=== PATIENT | female | born 1965 | race Caucasian/White ===

== ENCOUNTER → 2016-07-29 | Outpatient (CLI) | payer BC ==
[~2016-07-29] MED LIST: BUPROPION; CELE40TA; CIPR500T89 PO; CLIN300C; DITR5TAB PO; EXFO5TAB2 PO; IBUP200C PO; IBUP800T; LASI20TA PO; LORTTAB2 PO; METOPROLOL; MULTTAB4 PO; NORV5TAB; PAXI40TA2 PO; PERCOCET PO; PHEN-223 PO; VICO5TAB
--- NOTE | 2016-07-29 18:04 | REP ---
Supine abdomen two views: A comparison is 11/23/2015. The bowel gas pattern is normal. There are calcifications projected over the left kidney, unchanged. No calcifications are note along the courses of the right and left ureters. The previous calcification is suspected in the distal right ureter is no longer present. There is a 2.1 cm round density medially in the right iliac wing, unchanged from a prior study of 12/22/2011 and unchanged from the CT scans of 09/14/2015, 05/07/2006, likely a large bone island although metastasis is not entirely excluded. By CT there are bilateral renal calculi. The right kidney is obscured by bowel. on the current study. Signed by Steve Valles MD 07/29/2016 05:57 P
== END ==
LOC: M LAB 16:58
PROVIDERS: ATTEND Physician Assistant
DX: N20.0 Calculus of kidney (principal); M54.5 Low back pain

== ENCOUNTER → 2017-03-24 | Outpatient (CLI) | payer BC ==
[~2017-03-24] MED LIST changes: +CIPR-249 PO
--- NOTE | 2017-03-24 16:26 | REP ---
CT abdomen pelvis without IV and oral contrast: Comparison is 09/14/2015. There are multiple nonobstructive renal calculi bilaterally L of the approximate three 5 mm range. There is left hydronephrosis and hydroureter. There is a 7 mm calculus in the distal left ureter at its junction with the urinary bladder. There are numerous phleboliths in the pelvis. There are no right ureteral calculi. There is no perinephric stranding on the right on the left. There is a small volume of pleural effusion in the anterior sulcus of the right hemithorax. The visualized lung [place] otherwise unremarkable. The unenhanced hepatic parenchyma, gallbladder, pancreas and spleen are unremarkable. The adrenals are unremarkable. The abdominal aorta, bowel and mesentery are unremarkable. Pelvis: There are surgical clips adjacent to the cecum. The the patient has had appendectomy. The uterus and adnexa are unremarkable. The bladder is unremarkable. There is no adenopathy or ascites. The pelvic bowel loops are unremarkable. Impression: 7 mm obstructing calculus in the distal left ureter at its junction with the urinary bladder. Multiple bilateral nonobstructive renal calculi. Appendectomy. Small pleural effusion in the anterior sulcus of the right lung. Signed by Steve Valles MD 03/24/2017 04:17 P
== END ==
LOC: M RAD 14:40
PROVIDERS: ATTEND Urology
DX: N20.0 Calculus of kidney (principal)

== ENCOUNTER → 2017-11-09 | Outpatient (CLI) | payer BC | LOC: M LRY 13:58 | DX: N20.0 Calculus of kidney (principal); N28.1 Cyst of kidney, acquired; N13.30 Unspecified hydronephrosis | CPT/HCPCS: 76775 ==

== ENCOUNTER → 2017-11-11 | Outpatient (CLI) | payer BC | LOC: M RAD 11:01 | DX: N20.0 Calculus of kidney (principal) | CPT/HCPCS: 74176 ==

== ENCOUNTER 2018-03-14 13:45 | Emergency (ER) | payer OTHER, BC ==
[2018-03-14 14:30] LABS: BASO % 0.6 % (0.0-1.0); EOS # 0.3 10^3/uL (0.0-0.50); EOS % 4.1 % (0.0-3.0); HEMATOCRIT 39.7 % (36.0-47.0); HEMOGLOBIN 13.3 g/dl (12.0-15.5); IMMATURE GRANULOCYTE % 0.4 % (0-3.0); LYMPH # 2.1 10^3/uL (1.5-4.5); LYMPH % 29.5 % (24.0-44.0); MEAN CORPUSCULAR HEMOGLOBIN 31.2 pg (27.0-33.0); MEAN CORPUSCULAR HGB CONC 33.5 g/dl (32.0-36.5); MEAN CORPUSCULAR VOLUME 93.2 fl (80.0-96.0); MONO # 0.5 10^3/uL (0.0-0.8); MONO % 6.7 % (0.0-5.0); NEUTROPHILS # 4.3 10^3/uL (1.8-7.7); NEUTROPHILS % 58.7 % (36.0-66.0); PLATELET COUNT, AUTOMATED 275 10^3/uL (150-450); RED BLOOD COUNT 4.26 10^6/uL (4.00-5.40); RED CELL DISTRIBUTION WIDTH 12.7 % (11.5-14.5); WHITE BLOOD COUNT 7.3 10^3/uL (4.0-10.0)
[2018-03-14 14:34] LABS: KETONE, URINE AUTO RFX NEGATIVE (NEGATIVE); LEUKOCYTE ESTERASE UR AUTO RFX NEGATIVE (NEGATIVE); MUCUS, URINE RFX SMALL (NEGATIVE); NITRITE, URINE AUTO RFX NEGATIVE (NEGATIVE); RBC, URINE AUTO RFX 64 /HPF (0-3); SPECIFIC GRAVITY UR AUTO RFX 1.016 (1.002-1.035); SQUAM EPITHELIAL CELL UR AURFX 4 /HPF (0-6); WBC, URINE AUTO RFX 2 /HPF (0-3)
[2018-03-14] MEDS: KETOROLAC 30 MG/ML VIAL (J1885) IV (14:41)
[2018-03-14] MEDS: NS 1,000 ML IV (14:41)
[2018-03-14 14:43] LABS: ALBUMIN 3.3 GM/DL (3.2-5.2); ALKALINE PHOSPHATASE 62 U/L (45-117); ALT/SGPT 39 U/L (12-78); ANION GAP 9 MEQ/L (8-16); AST/SGOT 20 U/L (7-37); BILIRUBIN,DIRECT < 0.1 MG/DL (0.0-0.2); BILIRUBIN,TOTAL 0.3 MG/DL (0.2-1.0); BLOOD UREA NITROGEN 19 MG/DL (7-18); CALCIUM LEVEL 9.2 MG/DL (8.5-10.1); CARBON DIOXIDE LEVEL 25 MEQ/L (21-32); CHLORIDE LEVEL 107 MEQ/L (98-107); CREATININE FOR GFR 1.04 MG/DL (0.55-1.30); GLOMERULAR FILTRATION RATE 59.5 (>51); GLUCOSE, FASTING 105 MG/DL (70-100); LIPASE 240 U/L (73-393); POTASSIUM SERUM 3.5 MEQ/L (3.5-5.1); SODIUM LEVEL 141 MEQ/L (136-145); TOTAL PROTEIN 6.6 GM/DL (6.4-8.2)
[2018-03-14] MEDS: HYDROMORPHONE HCL 0.5 MG/ 0.5 ML SYRINGE (J1170 PER 1) IV (15:17)
[2018-03-14] MEDS: CIPROFLOXACIN 500 MG TAB PO (16:03)
[2018-03-14] MEDS: TAMSULOSIN 0.4 MG CAP PO (16:04)
== END 2018-03-14 16:25 | disposition home or self-care (01) ==
LOC: M ED 13:45
DX: N20.1 Calculus of ureter (principal); E86.0 Dehydration; R10.32 Left lower quadrant pain; I10 Essential (primary) hypertension; Z87.442 Personal history of urinary calculi; G43.909 Migraine, unspecified, not intractable, without status migrainosus; M16.0 Bilateral primary osteoarthritis of hip; Z79.899 Other long term (current) drug therapy; Z91.018 Allergy to other foods; J30.89 Other allergic rhinitis
CPT/HCPCS: J1885

== ENCOUNTER 2018-03-15 10:21 | Day surgery (SDC) | payer OTHER ==
[2018-03-15] MEDS ORDERED: ceFAZolin 2 GM/D5W 50 ML IV BAG (J0690 PER 500MG) As Ordered (10:49)
[2018-03-15] MEDS ORDERED: MORPHINE 4 MG/ML 1ML VIAL/SYRINGE (J2270) As Ordered (11:20)
[2018-03-15] MEDS: LR 1,000 ML IV (11:20)
[2018-03-15] MEDS ORDERED: ONDANSETRON 4MG/2ML VIAL (J2405) As Ordered ×2 (11:27→14:15)
[2018-03-15] MEDS: MORPHINE 4 MG/ML 1ML VIAL/SYRINGE (J2270) IV (11:29)
[2018-03-15] MEDS ORDERED: ONDANSETRON 4MG/2ML VIAL (J2405) IV ×2 (11:30→15:30)
[2018-03-15 11:35] LABS: INR 0.97; PROTHROMBIN TIME 12.9 SECONDS (12.1-14.4)
[2018-03-15] MEDS: CONRAY-60 60% 50ML VIAL (Q9961) As Ordered (14:04)
[2018-03-15] MEDS ORDERED: ePHEDrine SULFATE 25 MG/5 ML(5MG/ML) SYRINGE As Ordered (14:15)
[2018-03-15] MEDS ORDERED: PROPOFOL 200 MG/20 ML VIAL As Ordered (14:15)
[2018-03-15] MEDS ORDERED: fentaNYL 250 MCG/5 ML INJECTION (J3010) As Ordered (14:15)
[2018-03-15] MEDS ORDERED: MIDAZOLAM INJ 2 MG/2 ML VIAL (J2250) As Ordered (14:15)
[2018-03-15] MEDS ORDERED: LIDOCAINE 2% INJ 100 MG/5 ML SDV (FOR ANES.) As Ordered (14:15)
[2018-03-15] MEDS ORDERED: dexameTHASONE 4 MG/ML 1ML VIAL (J1100) As Ordered (14:15)
[2018-03-15] MEDS ORDERED: PHENYLephrine HCL 500 MCG/5 ML (100MCG/ML) SYRINGE (J2370) As Ordered (14:15)
[2018-03-15] MEDS ORDERED: KETOROLAC 60 MG/2 ML VIAL (J1885) As Ordered (14:26)
[2018-03-15] MEDS ORDERED: PERCOCET 5MG/325MG TAB As Ordered (15:00)
[2018-03-15] MEDS: PERCOCET 5MG/325MG TAB PO (15:05)
[2018-03-15] MEDS ORDERED: LR 1,000 ML IV (15:30)
[2018-03-15] MEDS ORDERED: fentaNYL 100 MCG/2 ML INJECTION (J3010) IV (15:30)
[2018-03-21 14:17] LABS: CA Oxalate Dihy 15 % (.); COMMENT Note: (.); Ca Ox Monohydrate 40 % (.)
== END 2018-03-15 17:10 | disposition home or self-care (01) ==
LOC: M SDC 17:10
DX: N20.0 Calculus of kidney (principal); I10 Essential (primary) hypertension; F32.9 Major depressive disorder, single episode, unspecified; E66.9 Obesity, unspecified; Z68.42 Body mass index [BMI] 45.0-49.9, adult
CPT/HCPCS: 52356

== ENCOUNTER → 2018-04-04 | Outpatient (REF) | payer BC ==
[2018-04-04 20:18] LABS: APPEARANCE, URINE CLOUDY (CLEAR); BACTERIA, URINE AUTO 1+ (NEGATIVE); BILIRUBIN, URINE AUTO NEGATIVE (NEGATIVE); BLOOD, URINE BLOOD 3+ (NEGATIVE); COLOR, URINE YELLOW (YELLOW); GLUCOSE, URINE (UA) AUTO NEGATIVE (NEGATIVE); KETONE, URINE AUTO NEGATIVE (NEGATIVE); LEUKOCYTE ESTERASE, URINE AUTO NEGATIVE (NEGATIVE); MUCUS, URINE SMALL (NEGATIVE); NITRITE, URINE AUTO NEGATIVE (NEGATIVE); PROTEIN, URINE AUTO NEGATIVE (NEGATIVE); RBC, URINE AUTO 10 /HPF (0-3); SPECIFIC GRAVITY URINE AUTO 1.019 (1.002-1.035); SQUAMOUS EPITHELIAL CELL UR AU 8 /HPF (0-6); UROBILINOGEN, URINE AUTO 0.2 mg/dL (0.0-2.0); WBC, URINE AUTO 9 /HPF (0-3)
== END ==
LOC: M SFHCLERA 16:42
DX: Z46.6 Encounter for fitting and adjustment of urinary device (principal)

== ENCOUNTER 2021-01-22 09:08 | Emergency (ER) | payer OTHER ==
[~2021-01-22] VITALS: Ht 160 cm; Wt 127.3 kg
[~2021-01-22 09:08] MED LIST changes: +ACET650T61 PO; +CIPR500T3 PO; +FLOM0.4C39 PO; +LOTR10CA2 PO; +PERC5TAB12 PO; +TOPI25TA10; +VITA200016 PO; +ZIAC1TAB PO
[2021-01-22] MEDS ORDERED: BISO5TAB2 (09:16)
[2021-01-22] MEDS ORDERED: GABA-1171 (09:16)
[2021-01-22] MEDS ORDERED: KETOROLAC 30 MG/ML 1ML VIAL IV ONE (11:20)
[2021-01-22 11:35] LABS: BASO % 0.4 % (0.0-1.0); EOS # 0.2 10^3/uL (0.0-0.5); EOS % 2.3 % (0.0-3.0); HEMATOCRIT 43.7 % (36.0-47.0); HEMOGLOBIN 15.1 g/dl (12.0-15.5); LYMPH # 1.3 10^3/uL (1.5-5.0); LYMPH % 13.9 % (24.0-44.0); MEAN CORPUSCULAR HEMOGLOBIN 32.4 pg (27.0-33.0); MEAN CORPUSCULAR HGB CONC 34.6 g/dl (32.0-36.5); MEAN CORPUSCULAR VOLUME 93.8 fl (80.0-96.0); MONO # 0.9 10^3/uL (0.0-0.8); MONO % 9.6 % (2.0-8.0); NEUTROPHILS # 6.8 10^3/uL (1.5-8.5); NEUTROPHILS % 73.3 % (36.0-66.0); PLATELET COUNT, AUTOMATED 273 10^3/uL (150-450); RED BLOOD COUNT 4.66 10^6/uL (4.00-5.40); WHITE BLOOD COUNT 9.3 10^3/uL (4.0-10.0)
[2021-01-22 12:10] LABS: ALBUMIN 3.5 GM/DL (3.2-5.2); BILIRUBIN,DIRECT 0.2 MG/DL (0.0-0.2); BILIRUBIN,TOTAL 0.5 MG/DL (0.2-1.0); CALCIUM LEVEL 8.7 MG/DL (8.5-10.1); CREATININE FOR GFR 1.15 MG/DL (0.55-1.30); GLOMERULAR FILTRATION RATE 52.3 (>51); POTASSIUM SERUM 3.4 MEQ/L (3.5-5.1); TOTAL PROTEIN 6.9 GM/DL (6.4-8.2)
--- NOTE | 2021-01-22 12:38 | REP ---
INDICATION: RLL pain h/o stones COMPARISON: Comparison CT study of the abdomen and pelvis is from March 15, 2018.. TECHNIQUE: Helical scanning is acquired and 3 mm axial images were reformatted. Coronal and sagittal MPR images were generated and reviewed. FINDINGS: Preliminary digital food safety coordinator radiograph is unremarkable. There are granulomatous calcifications in the lung bases. No infiltrate or mass is seen in the lung bases. There is a lobulated cystic lesion in the sub pulmonic region of the right chest just above the right hemidiaphragm unchanged from the March 15, 2018 study. This compatible with a pericardial cyst. It measures 3.6 cm craniocaudal by 6.9 cm in oblique anteroposterior by 11.3 cm in oblique medial to lateral dimension. This is visible on multiple prior studies and is essentially unchanged dating back to 2010. There is moderate diffuse fatty infiltration of the liver again noted. There are areas of fat sparing near the gallbladder. No abnormality is seen in the gallbladder. The pancreas is unremarkable. Normal adrenal glands are observed. No splenic abnormality is seen. There is moderate to marked right-sided hydronephrosis and hydroureter. This is due to the presence of an obstructing calculus in the distal ureter at the pelvic inlet. This measures 7 mm in greatest craniocaudal span. There is a nonobstructing calculus just above this in the dilated distal ureter which measures 3 mm in diameter. There is Gina ureteral edema and some perinephric edema is seen. There are numerous intrarenal calculi bilaterally. These measure up to 5 mm. There is no hydronephrosis on the left. No bladder calculus is seen. No uterine or ovarian mass lesion is seen. Nabothian cyst is seen in the cervix. There are clips in the right lower quadrant post appendectomy. Small and large bowel loops are unremarkable. There is mild diverticulosis of the sigmoid colon. No abdominal wall defect is seen. IMPRESSION: 1. Acute obstructive uropathy with moderate to marked hydronephrosis right kidney due to a 7 mm calculus in the right distal ureter at the pelvic inlet. 2. Multiple intrarenal calculi bilaterally. No left-sided hydronephrosis. 3. Moderate diffuse fatty infiltration of the liver. 4. 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 <Electronically signed by Bowen Ulrich > 01/22/21 [id number]
[2021-01-22] MEDS ORDERED: PERC5TAB12 PO (13:38)
[2021-01-22] MEDS ORDERED: CIPR500T39 PO (13:40)
[2021-01-22 14:15] VITALS: BP 117/58
== END 2021-01-22 14:36 | disposition home or self-care (01) ==
LOC: M ED 09:08
DX: N13.2 Hydronephrosis with renal and ureteral calculous obstruction (principal); K76.0 Fatty (change of) liver, not elsewhere classified; I10 Essential (primary) hypertension; Z91.018 Allergy to other foods
CPT/HCPCS: 74176; 80048; 80076; 81001; 83690; 85025; 96374; 99284; J1885

== ENCOUNTER 2021-02-18 16:48 | Emergency (ER) | payer OTHER ==
[~2021-02-18] VITALS: Ht 160 cm; Wt 129.1 kg
[~2021-02-18 16:48] MED LIST changes: +BISO5TAB2 PO; +CIPR500T39 PO; +GABA-1171 PO
[2021-02-18] MEDS ORDERED: KETOROLAC 60MG 2ML VIAL IM ONE (18:00)
[2021-02-18] MEDS ORDERED: AUGM875T28 PO (18:00)
[2021-02-18 18:44] VITALS: BP 159/85
[2021-02-19] MEDS ORDERED: PRED20TA PO (15:45)
[2021-02-19] MEDS ORDERED: AMOX875T2 PO (21:52)
[2021-02-19] MEDS ORDERED: MAGN500T12 PO (21:52)
[2021-02-19] MEDS ORDERED: SM P99TA PO (21:52)
[2021-02-19] MEDS ORDERED: B-12100010 PO (21:52)
[2021-02-19] MEDS ORDERED: DULO60CA35 PO (21:52)
[2021-02-19] MEDS ORDERED: D31000TA2 PO (21:52)
[2021-02-19] MEDS ORDERED: MULTTAB86 PO (21:52)
[2021-02-19] MEDS ORDERED: BUPR15TASR PO (21:52)
[2021-02-19] MEDS ORDERED: IBUP80TA PO (21:52)
[2021-02-19] MEDS ORDERED: ACET650T15 PO (21:52)
[2021-02-19] MEDS ORDERED: VITA500C24 PO (21:52)
== END 2021-02-18 18:39 | disposition home or self-care (01) ==
LOC: M ED 16:48
DX: J36 Peritonsillar abscess (principal); Z91.018 Allergy to other foods; J30.2 Other seasonal allergic rhinitis; Z79.899 Other long term (current) drug therapy
CPT/HCPCS: 96372; 99283; J1885

== ENCOUNTER 2021-02-19 15:08 | Inpatient (IN) | payer OTHER ==
[~2021-02-19] VITALS: Ht 160 cm; Wt 127.1 kg
[~2021-02-19 15:08] MED LIST changes: +AUGM875T28 PO
[2021-02-19] MEDS ORDERED: PRED20TA PO (15:45)
[2021-02-19] MEDS ORDERED: ONDANSETRON 4MG/2ML VIAL IV ONE (18:25)
[2021-02-19] MEDS ORDERED: MORPHINE 4 MG/ML 1ML VIAL/SYRINGE (J2270) IV ONE ×2 (18:25→20:55)
[2021-02-19] MEDS ORDERED: NS 1,000 ML IV ONE (18:25)
[2021-02-19] MEDS ORDERED: dexameTHASONE 20MG/5ML VIAL (J1100 PER 1MG) IV ONE (18:35)
[2021-02-19 19:13] LABS: BASO % 0.3 % (0.0-1.0); HEMATOCRIT 40.5 % (36.0-47.0); HEMOGLOBIN 13.9 g/dl (12.0-15.5); LYMPH # 1.9 10^3/uL (1.5-5.0); LYMPH % 16.1 % (24.0-44.0); MEAN CORPUSCULAR HEMOGLOBIN 31.9 pg (27.0-33.0); MEAN CORPUSCULAR HGB CONC 34.3 g/dl (32.0-36.5); MEAN CORPUSCULAR VOLUME 92.9 fl (80.0-96.0); MONO # 0.9 10^3/uL (0.0-0.8); MONO % 7.5 % (2.0-8.0); NEUTROPHILS # 8.8 10^3/uL (1.5-8.5); NEUTROPHILS % 75.6 % (36.0-66.0); PLATELET COUNT, AUTOMATED 277 10^3/uL (150-450); RED BLOOD COUNT 4.36 10^6/uL (4.00-5.40); WHITE BLOOD COUNT 11.7 10^3/uL (4.0-10.0)
[2021-02-19] MEDS ORDERED: ISOVUE-370 76% 100ML VIAL As Ordered ONE (19:24)
[2021-02-19 19:45] LABS: ERYTHROCYTE SEDIMENTATION RATE 54 mm/hr (0-30)
--- NOTE | 2021-02-19 20:08 | REPVR ---
PROCEDURE INFORMATION: Exam: CT Neck With Contrast Exam date and time: 02/19/2021 7:39 PM Age: 55 years old Clinical indication: Abscess, pharyngeal and dysphagia / difficulty swallowing; Additional info: Recent abscess, dysphagia, lateral neck pain TECHNIQUE: Imaging protocol: Computed tomography images of the neck with contrast. Radiation optimization: All CT scans at this facility use at least one of these dose optimization techniques: automated exposure control; mA and/or kV adjustment per patient size (includes targeted exams where dose is matched to clinical indication); or iterative reconstruction. Contrast material: ISOVUE 370; Contrast volume: 75 ml; Contrast route: INTRAVENOUS (IV); COMPARISON: No relevant prior studies available. FINDINGS: Nasopharynx: Unremarkable. Oropharynx: 1.4 x 1.7 x 3.6 cm multilocular left peritonsillar abscess associated with marked thickening of the left tonsillar pillar. Hypopharynx: Mild mass effect on the left lateral side of the hypopharynx secondary to the adjacent abscess. Larynx: Unremarkable. Normal epiglottis. Retropharyngeal space: Unremarkable. Submandibular/Parotid glands: Normal. Glands are normal in size. Thyroid: Normal. No enlarged or calcified nodules. Lymph nodes: Prominent left jugulodigastric lymph node measures 1.2 cm. Multiple bilateral cervical chain lymph nodes not significantly enlarged by standard node criteria. Trachea: Visualized trachea is unremarkable. Lungs: Unremarkable as visualized. Bones/joints: Unremarkable. No acute fracture. Vasculature: Mild atherosclerotic changes in the proximal right internal carotid artery. Soft tissues: Unremarkable. No significant soft tissue swelling. IMPRESSION: 1. 1.4 x 1.7 x 3.6 cm multilocular left peritonsillar abscess associated with marked thickening of the left tonsillar pillar. 2. Prominent left jugulodigastric lymph node measures 1.2 cm. Multiple bilateral cervical chain lymph nodes not significantly enlarged by standard node criteria. Electronically signed by: Levon Diana On 02/19/2021 20:08:30 PM
[2021-02-19] MEDS ORDERED: CLINDAMYCIN 600 MG in IV 1 EA IV ONE (21:15)
[2021-02-19] MEDS ORDERED: DULO60CA35 PO (21:52)
[2021-02-19] MEDS ORDERED: AMOX875T2 PO (21:52)
[2021-02-19] MEDS ORDERED: IBUP80TA PO (21:52)
[2021-02-19] MEDS ORDERED: ACET650T15 PO (21:52)
[2021-02-19] MEDS ORDERED: MULTTAB86 PO (21:52)
[2021-02-19] MEDS ORDERED: B-12100010 PO (21:52)
[2021-02-19] MEDS ORDERED: D31000TA2 PO (21:52)
[2021-02-19] MEDS ORDERED: BUPR15TASR PO (21:52)
[2021-02-19] MEDS ORDERED: VITA500C24 PO (21:52)
[2021-02-19] MEDS ORDERED: SM P99TA PO (21:52)
[2021-02-19] MEDS ORDERED: MAGN500T12 PO (21:52)
[2021-02-19] MEDS ORDERED: HOME MED LIST COMPLETE! XX SCH (21:55)
[2021-02-19] MEDS ORDERED: LIDOCAINE W/EPINEPHRINE 1% 20ML VIAL As Ordered ONE (21:56)
[2021-02-19] MEDS ORDERED: ceFAZolin 1GM VIAL (J0690 PER 500MG) As Ordered ONE (21:58)
[2021-02-19 22:01] LABS: RSV AMPLIFICATION NEGATIVE (NEGATIVE)
[2021-02-19] MEDS ORDERED: METHYLENE BLUE 0.5% (5MG/ML) 10 ML AMP (PROVAYBLUE) As Ordered ONE (22:25)
[2021-02-19] MEDS ORDERED: OXYMETAZOLINE 0.05% NASAL SPRAY (AFRIN) As Ordered ONE (22:26)
[2021-02-19] MEDS ORDERED: MAALOX 30 ML SUSP *UDC PO PRN (22:30)
[2021-02-19] MEDS ORDERED: ACETAMINOPHEN TAB 650MG DOSE (2X325MG) PO PRN (22:30)
[2021-02-19] MEDS ORDERED: MOM 30ML SUSPENSION UDC PO PRN (22:30)
[2021-02-19] MEDS ORDERED: fentaNYL 100 MCG/2 ML INJECTION (J3010) As Ordered ONE (22:36)
[2021-02-19] MEDS ORDERED: MIDAZOLAM INJ 2MG/2ML VIAL (J2250 PER 1MG) As Ordered ONE (22:36)
[2021-02-19] MEDS ORDERED: dexameTHASONE 4 MG/ML 1ML VIAL (J1100 PER 1MG) As Ordered ONE ×2 (22:37→22:53)
[2021-02-19] MEDS ORDERED: LIDOCAINE 2% 100MG/5ML SDV (FOR ANES.) As Ordered ONE (22:37)
[2021-02-19] MEDS ORDERED: propofoL 200 MG/20 ML VIAL As Ordered ONE (22:37)
[2021-02-19] MEDS ORDERED: ROCURONIUM BROMIDE 50 MG/5 ML VIAL As Ordered ONE ×2 (22:37→22:55)
[2021-02-19] MEDS ORDERED: ONDANSETRON 4MG/2ML VIAL As Ordered ONE (22:37)
[2021-02-19] MEDS ORDERED: METOCLOPRAMIDE INJ 10MG/2ML VIAL (J2765 PER 1) As Ordered ONE (22:37)
[2021-02-19] MEDS ORDERED: SUCCINYLCHOLINE 100 MG/5 ML SYRINGE (J0330) As Ordered ONE (22:37)
--- NOTE | 2021-02-19 22:40 | HPEPDOC ---
[facility] [address] [facility] Medical History & Physical Date of Admission Feb 19, 2021 Date of Service: Feb 19, 2021 Attending Physician: MICHELLE HUNT MD History and Physical CHIEF COMPLAINT: [55 y/o female c/o continued sore throat x1 week] HISTORY OF PRESENT ILLNESS: [This is a 55 y/o female with a pmh of htn, migraines and recurrent nephrolithiasis who reports to our ED with a 7 day history of sore throat and voice hoarseness. Patient originally presented to urgent care these 7 days ago and was started on steroids for her symptoms. Patients symptoms progressed and was seen in our ED 2 days ago and was started on augmentin alongside the steroids. Patient then experienced a gush of fluid in her throat and reported back to our ED today 02/19. CT imaging performed in the ED showed 3cm peritonsillar abscess. ED provider consulted front end technician ENT and was taken to the OR for emergent I&D. I saw and examined the patient in the PACU post procedure. Patient, at the time of my exam, was still a bit somnolent from anesthesia but tells me that she feels good despite the pain in her throat and some mild pain in her abdomen. Patient denied any fever, chills, sob, chest pain, n/v/d/c, pedal edema.] PAST MEDICAL HISTORY: 1. [See HPI PAST SURGICAL HISTORY: 1. [Multiple ureteral stent placement procedures]. 2. [Lithotripsy]. 3. [Appendectomy 4. Tubal ligation 5. Right wrist ORIF]. SOCIAL HISTORY: Tobacco use:[Denies] ETOH: [Denies] Illicit drug use: [Denies] FAMILY HISTORY: Reviewed - none pertinent ALLERGIES: Please see below. REVIEW OF SYSTEMS: CONSTITUTIONAL: [Denies fever, chills]. HEENT: [See HPI]. CARDIOVASCULAR: [Denies chest pain, sob]. RESPIRATORY: [Denies difficulty breathing, sob, wheezing]. GASTROINTESTINAL: [Mild abd pain. Denies n/v/d/c]. GENITOURINARY: [Denies dysuria]. SKIN: [Denies rash]. MUSCULOSKELETAL: [Denies acute joint/back pain]. NEUROLOGICAL: [Denies paresthesia]. ENDOCRINE: [Denies hx of DM]. HEMATOLOGIC/LYMPHATIC: [Denies hx of vte]. HOME MEDICATIONS: Please see below. PHYSICAL EXAMINATION: VITAL SIGNS: Please see below. GENERAL APPEARANCE: [Patient resting in bed comfortably in PACU. Somewhat somnolent post anesthesia. In no acute distress.]. HEENT: [No mass or lesion. EOMI. No scleral icterus. Nares patent. Oral mucosa moist, pharynx injected.]. CARDIOVASCULAR: [Regular rate, rhythm. No murmurs, rubs, gallops]. LUNGS: [Decreased breath sounds d/t body habitus. No wheezing, rales, rhonchi]. ABDOMEN: [Soft, tender to RLQ]. MUSCULOSKELETAL: [No joint deformity]. EXTREMITIES: [No pedal edema appreciated. Pulses intact. No focal deficits.]. NEUROLOGICAL: [Speech hoarse but clear. A+Ox3. No focal deficits]. PSYCHIATRIC: [Mood and affect appear appropriate]. LABORATORY DATA: See below. IMAGING: [Neck CT: FINDINGS: Nasopharynx: Unremarkable. Oropharynx: 1.4 x 1.7 x 3.6 cm multilocular left peritonsillar abscess associated with marked thickening of the left tonsillar pillar. Hypopharynx: Mild mass effect on the left lateral side of the hypopharynx secondary to the adjacent abscess. Larynx: Unremarkable. Normal epiglottis. Retropharyngeal space: Unremarkable. Submandibular/Parotid glands: Normal. Glands are normal in size. Thyroid: Normal. No enlarged or calcified nodules. Lymph nodes: Prominent left jugulodigastric lymph node measures 1.2 cm. Multiple bilateral cervical chain lymph nodes not significantly enlarged by standard node criteria. Trachea: Visualized trachea is unremarkable. Lungs: Unremarkable as visualized. Bones/joints: Unremarkable. No acute fracture. Vasculature: Mild atherosclerotic changes in the proximal right internal carotid artery. Soft tissues: Unremarkable. No significant soft tissue swelling. IMPRESSION: 1. 1.4 x 1.7 x 3.6 cm multilocular left peritonsillar abscess associated with marked thickening of the left tonsillar pillar. 2. Prominent left jugulodigastric lymph node measures 1.2 cm. Multiple bilateral cervical chain lymph nodes not significantly enlarged by standard node criteria. ] MICROBIOLOGY: Please see below. ASSESSMENT: [This is a 55 y/o female with a pmh of htn, migraines and recurrent nephrolithiasis who reports to our ED with a 7 day history of sore throat and voice hoarseness. CT imaging performed in the ED showed 3cm peritonsillar abscess. ED provider consulted front end technician ENT and was taken to the OR for emergent I&D.]. . PLAN: 1. [Left peritonsillar abscess - Dr. Cruz, ENT, was consulted by the ED and took patient for urgent surgical intervention. Assistance and recommendations greatly appreciated - Per Dr. Cruz, patient to be on clindamycin iv while inpatient, needs 10 days total treatment, and should f/u with ENT office 1 week post op - Dexamethasone 8mg iv q8h to prevent airway edema - Continuous pulse ox - Elevate hob - Will give IVF on the floor - Soft diet - Morphine for pain, zofran for nausea - Admit to PCU for IV abx 2. HTN - continue at home benazepril, bisoprolol, amlodipine 3. Depression/anxiety - continue cymbalta, wellbutrin 4. Obesity - BMI 49.6, complicates care DVT prophylaxis - mechanical]. Vital Signs Vital Signs Date Time Temp Pulse Resp B/P (MAP) Pulse Ox O2 Delivery O2 Flow Rate FiO2 02/19/21 22:27 97.8 86 18 178/85 (116) 96 Room Air Laboratory Data Labs 24H Laboratory Tests 2 02/19/21 18:22: Immature Granulocyte % (Auto) 0.5, Neutrophils (%) (Auto) 75.6H, Lymphocytes (%) (Auto) 16.1L, Monocytes (%) (Auto) 7.5, Eosinophils (%) (Auto) 0.0, Basophils (%) (Auto) 0.3, Neutrophils # (Auto) 8.8H, Lymphocytes # (Auto) 1.9, Monocytes # (Auto) 0.9H, Eosinophils # (Auto) 0.0, Basophils # (Auto) 0.0, Nucleated Red Blood Cells % (auto) 0.0, Erythrocyte Sedimentation Rate 54H, Lactic Acid Level 1.0, C-Reactive Protein, Quantitative 6.40H 02/19/21 18:57: POC Glucose (Misc Panel) 92, POC Sodium (Misc Panel) 140, POC Potassium (Misc Panel) 3.1L, POC Chloride (Misc Panel) 95L, POC Total CO2 (Misc Panel) 29.0H, POC Blood Urea Nitrogen (Misc Panel 12, POC Ionized Calcium (Misc Panel) 4.9, POC Creatinine (Misc Panel) 0.8, POC Hematocrit (Misc Panel) 40.0 02/19/21 21:00: Coronavirus (COVID-19)(PCR) NEGATIVE, Influenza Type A (RT-PCR) NEGATIVE, Influenza Type B (RT-PCR) NEGATIVE, Respiratory Syncytial Virus (PCR) NEGATIVE CBC/BMP Laboratory Tests 02/19/21 18:22 Microbiology Microbiology 02/19/21 Blood Culture, Received Pending 02/19/21 Blood Culture, Received Pending Home Medications Scheduled Amlodipine Besylate/Benazepril (Lotrel 10-40 mg Capsule) 1 Cap Cap, 1 CAP PO DAILY Amoxicillin/Potassium Clav (Amox-Clav 875-125 mg Tablet) 1 Each Tablet, 1 TAB PO BID started 02/18/21 x 10 days Ascorbic Acid (Vitamin C) 500 Mg Capsule, 500 MG PO DAILY Bisoprolol/Hydrochlorothiazide (Bisoprolol-Hctz 5-6.25 mg Tab) 1 Each Tablet, 1 TAB PO DAILY Bupropion HCl (Bupropion HCl Sr) 150 Mg Tab.er.12h, 150 MG PO DAILY Cholecalciferol (Vitamin D3) (Vitamin D3) 1,000 Unit Tablet, 2,000 UNITS PO QHS Cyanocobalamin (Vitamin B-12) (Vitamin B-12) 1,000 Mcg Capsule, 1,000 MCG PO DAILY Duloxetine HCl (Duloxetine HCl) 60 Mg Capsule.dr, 60 MG PO DAILY Gabapentin (Gabapentin) 100 Mg Capsule, 200 MG PO QAM Magnesium Oxide (Magnesium Oxide) 500 Mg Tablet, 500 MG PO QHS Multivitamin (Multi-Vitamin Daily) 1 Each Tablet, 1 TAB PO DAILY Potassium Gluconate (Potassium) 99 Mg Tablet, 595 MG PO DAILY Prednisone (Prednisone) 20 Mg Tablet, 40 MG PO DAILY started 02/15/21 x 5 days Scheduled PRN Acetaminophen (Acetaminophen ER) 650 Mg Tablet.er, 650 MG PO Q8H PRN for pain Ibuprofen (Ibuprofen) 800 Mg Tablet, 800 MG PO DAILY PRN for PAIN Oxycodone HCl/Acetaminophen (Percocet 5-325 mg Tablet) 1 Each Tablet, 1 TAB PO Q6H PRN for PAIN Allergies Coded Allergies: [place] (Verified Allergy, Severe, SCRATCHY THROAT, 01/22/21) ENVIROMENTAL (Verified Allergy, Unknown, 04/06/10) Coconut (Verified Adverse Reaction, Mild, 11/6/06) banana (Verified Adverse Reaction, Unknown, 01/22/21) A-FIB/CHADSVASC A-FIB History Current/History of A-Fib/PAF?: No NIKKO LOTT Feb 19, 2021 22:40
[2021-02-19] MEDS ORDERED: ACETAMINOPHEN 1000MG 100ML IV BTL (OFIRMEV) (J0131 PER 10MG) As Ordered ONE (22:54)
[2021-02-19] MEDS ORDERED: SUGAMMADEX SODIUM 500 MG/5 ML VIAL (BRIDION) As Ordered ONE (22:55)
[2021-02-19] MEDS ORDERED: ALBUTEROL 6.7GM INHALER **FOR ANES. CART/OMNICELL ONLY As Ordered ONE (23:17)
[2021-02-19] MEDS ORDERED: LR 1,000 ML IV SCH (23:35)
[2021-02-19] MEDS ORDERED: fentaNYL 100 MCG/2 ML INJECTION (J3010) IV PRN (23:35)
[2021-02-19] MEDS ORDERED: oxyCODONE 5MG TAB PO PRN (23:35)
[2021-02-19] MEDS ORDERED: ONDANSETRON 4MG/2ML VIAL IV PRN ×2 (23:35→23:55)
[2021-02-19] MEDS ORDERED: MORPHINE 4 MG/ML 1ML VIAL/SYRINGE (J2270) IV PRN (23:45)
[2021-02-19 23:59] VITALS: BP 125/60
[2021-02-20] VITALS (18 sets, daily range): BP systolic 97–137; BP diastolic 48–69; O2SAT 90–96
[2021-02-20] MEDS ORDERED: ACETAMINOPHEN 650MG ER TAB (TYLENOL ARTHRITIS) PO PRN (00:30)
[2021-02-20] MEDS: NS 1,000 ML IV SCH ×3 (01:48→14:30)
[2021-02-20] MEDS: dexameTHASONE 4 MG/ML 1ML VIAL (J1100 PER 1MG) IV SCH ×3 (03:32→18:46)
[2021-02-20] MEDS: CLINDAMYCIN 600 MG in IV 1 EA IV SCH ×3 (03:38→14:48)
[2021-02-20 06:17] LABS: HEMATOCRIT 36.8 % (36.0-47.0); HEMOGLOBIN 12.6 g/dl (12.0-15.5); MEAN CORPUSCULAR HEMOGLOBIN 32.1 pg (27.0-33.0); MEAN CORPUSCULAR HGB CONC 34.2 g/dl (32.0-36.5); MEAN CORPUSCULAR VOLUME 93.6 fl (80.0-96.0); PLATELET COUNT, AUTOMATED 262 10^3/uL (150-450); RED BLOOD COUNT 3.93 10^6/uL (4.00-5.40); WHITE BLOOD COUNT 11.7 10^3/uL (4.0-10.0)
[2021-02-20 06:36] LABS: BLOOD UREA NITROGEN 14 MG/DL (7-18); CALCIUM LEVEL 8.3 MG/DL (8.5-10.1); CARBON DIOXIDE LEVEL 30 MEQ/L (21-32); CHLORIDE LEVEL 104 MEQ/L (98-107); CREATININE FOR GFR 0.69 MG/DL (0.55-1.30); GLOMERULAR FILTRATION RATE > 60.0 (>51); GLUCOSE, FASTING 173 MG/DL (70-100); MAGNESIUM LEVEL 1.9 MG/DL (1.8-2.4); POTASSIUM SERUM 3.6 MEQ/L (3.5-5.1); SODIUM LEVEL 140 MEQ/L (136-145)
[2021-02-20] MEDS ORDERED: DULoxetine 30 MG CAP (CYMBALTA) PO SCH (09:00)
[2021-02-20] MEDS ORDERED: dexameTHASONE 4 MG/ML 1ML VIAL (J1100 PER 1MG) IV SCH (09:00)
[2021-02-20] MEDS ORDERED: bisoproloL fumarate 5 MG TAB PO SCH (09:00)
[2021-02-20] MEDS ORDERED: buPROPion **SR TABLET** (ZYBAN) 150MG PO SCH (09:00)
[2021-02-20] MEDS ORDERED: IBUPROFEN 800 MG TAB PO PRN (09:00)
[2021-02-20] MEDS ORDERED: BENAZEPRIL 20 MG TAB PO SCH (09:00)
[2021-02-20] MEDS ORDERED: GABAPENTIN 100 MG CAP PO SCH (09:00)
--- NOTE | 2021-02-20 10:05 | CR ---
CONSULTATION DATE: 02/19/2021 CHIEF COMPLAINT: Left-sided sore throat. HISTORY OF PRESENT ILLNESS: This is a 55-year-old woman, has been experiencing left-sided sore throat for the past seven days. She was initially seen at the urgent care, where she received oral steroids for treatment. She did not respond to the steroid treatment alone. She presented to the emergency department (ED) about two days ago, when she felt something rupture in the left side of her throat. She received, at the time, amoxicillin. However, her condition has continued to deteriorate, with increasing left-sided sore throat with associated dysphagia. She represented to the emergency department this evening. CT scan of the neck was performed and a 3.6 cm multiloculated left peritonsillar abscess was identified. I was consulted in regards to surgical management of the left peritonsillar abscess. Patient denies fever, night sweats or unexplained weight loss. She has no known bleeding disorder. PAST SURGICAL HISTORY: No prior history of peritonsillar abscess. PAST MEDICAL HISTORY: Hypertension. MEDICATIONS: Reviewed. ALLERGIES: No known drug allergies. PHYSICAL EXAMINATION: On examination, patient appears in moderate distress. Trismus noted with an oral cavity opening 2 cm. Floor of the mouth not elevated. Tongue mobile and non-deviated. Soft palette on the left side edematous and erythematous. Peritonsillar area also edematous. Uvula shifted to the right side. Palpable left jugulodigastric lymph node approximately 1 cm in size. Trachea midline. IMAGING DATA: CT neck was reviewed. A 3.6 cm multiloculated left peritonsillar abscess noted. IMPRESSION: A 55-year-old woman with left peritonsillar abscess. PLAN: Given the large size of the peritonsillar abscess, I have arranged for an urgent surgical incision and drainage of the left peritonsillar abscess in the operating room. I will make the arrangements. The plan is to have the patient admitted overnight in order to receive postoperative intravenous (IV) antibiotics in series. Consent has been obtained by the patient.
[2021-02-20] MEDS ORDERED: CLEO300C2 PO (16:33)
--- NOTE | 2021-02-20 16:59 | RO ---
OPERATIVE NOTE DATE OF OPERATION: 02/19/2021 PREOPERATIVE DIAGNOSIS: Left peritonsillar abscess. POSTOPERATIVE DIAGNOSIS: Left peritonsillar abscess. PROCEDURE PERFORMED: Incision and drainage of the left peritonsillar abscess. SURGEON: Trevon Cruz MD VICE PRESIDENT EDUCATION: ANESTHESIA: General CLINICAL PREAMBLE: This is a 55-year-old woman who presented to the emergency department with progressive worsening of the left-sided sore throat. CT of the neck revealed a 3.6 cm multiloculated left peritonsillar abscess. Management options including I&D of the left peritonsillar abscess have been discussed. She understood and consented to the procedure. OR NARRATION: The patient was identified in the preholding area and brought to the operating room in stable condition. In supine position on the operating table, the patient received general anesthesia followed by orotracheal intubation without incident. The patient was prepped and draped in the usual fashion for the procedure. The Anuja-Parish mouth gag was inserted and suspended. The left peritonsillar region was visualized and found to be edematous and erythematous. 1% lidocaine with 1:100,000 epinephrine was used to infiltrate the superior pole of the left tonsil. A second knife was used to make the mucosal incision over the left superior pole. Using the Schnidt dissector, the tonsil capsule was identified and dissected. Approximately 7 mL of purulent discharge was encountered and swabs were taken for C&S, gram stain and anaerobic cultures. The entire left tonsil capsule was dissected to break up the loculated abscess cavity. Approximately 500 mL of warm saline mixed with 1 gm of cefazolin was used to irrigate the left peritonsillar space. At the end of the procedure, sponge and instrument counts were correct. No complications encountered. Estimated blood loss was approximately 5 mL. General anesthesia was reversed and the patient was extubated and brought to the recovery room in stable condition.
--- NOTE | 2021-02-20 18:57 | DS.PDOC ---
Discharge Summary General Date of Admission Feb 19, 2021 at 22:42 Date of Discharge 02/20/2021 Discharge Summary PRIMARY CARE PHYSICIAN: Dr. Wilfred Castillo ATTENDING AT TIME OF DISCHARGE: Dr. Robert Dominguez, DISCHARGE DIAGNOS(E)S: Left-sided peritonsillar abscess Hypertension Migraines HPI & HOSPITAL COURSE: Patient had been experiencing left-sided sore throat for the past 1 week. She was seen in urgent care where she was treated with oral steroids. Her left- sided peritonsillar abscess spontaneously ruptured a few days prior to her admission, and she was given Augmentin, however she had reaccumulation of the left-sided peritonsillar abscess and return back to the emergency department. She was seen and evaluated by ENT who determined that she required surgical intervention with I&D. She was taken to the OR that same night. Abscess was successfully drained. She was given IV clindamycin while inpatient. Microbiology initial Gram stain indicates gram-positive rods and gram-positive cocci in pairs. Postoperatively she has done quite well, and appears ready and stable for discharge at this time. She will be transitioned over to oral clindamycin which she can continue for the next 10 days. PHYSICAL EXAMINATION ON DISCHARGE: GENERAL: Awake, alert, oriented x3. HEENT: Large incision on the left aspect of the oropharynx. This appears to be healing well, there is no drainage visible at this time. The area surrounding the incision is erythematous, but no significant edema noted at this time. CARDIOVASCULAR EXAMINATION: Regular rate and rhythm, with no rubs, gallops, or murmur. RESPIRATORY EXAMINATION: Clear to auscultation bilaterally with no wheezes, rales, or rhonchi. ABDOMINAL EXAMINATION: Soft, nontender, nondistended. Bowel sounds present. EXTREMITIES: No clubbing or edema noted. 2+ pulses in the radial bilaterally. DISPOSITION: Home DISCHARGE INSTRUCTIONS: Follow-up with ENT Dr. Cruz in 1 week. Recommend soft diet for the next 3-4 days and then if feeling better may transition to regular diet at that time. Activity as tolerated. If symptoms return, or if you experience worsening of your symptoms, please call your doctor or return to the emergency department. Vital Signs/I&Os Vital Signs Date Time Temp Pulse Resp B/P (MAP) Pulse Ox O2 Delivery O2 Flow Rate FiO2 02/20/21 16:00 97.4 90 18 137/61 (86) 97 Room Air 02/20/21 14:00 2.0 I&O- Last 24 Hours up to 6 AM 02/20/21 06:00 Intake Total 1300 ml Output Total 0 ml Balance 1300 ml Laboratory Data Labs 24H Laboratory Tests 2 02/19/21 18:57: POC Glucose (Misc Panel) 92, POC Sodium (Misc Panel) 140, POC Potassium (Misc Panel) 3.1L, POC Chloride (Misc Panel) 95L, POC Total CO2 (Misc Panel) 29.0H, POC Blood Urea Nitrogen (Misc Panel 12, POC Ionized Calcium (Misc Panel) 4.9, POC Creatinine (Misc Panel) 0.8, POC Hematocrit (Misc Panel) 40.0 02/19/21 21:00: Coronavirus (COVID-19)(PCR) NEGATIVE, Influenza Type A (RT-PCR) NEGATIVE, Influenza Type B (RT-PCR) NEGATIVE, Respiratory Syncytial Virus (PCR) NEGATIVE 02/20/21 05:57: Nucleated Red Blood Cells % (auto) 0.0, Anion Gap 6L, Glomerular Filtration Rate > 60.0, Calcium Level 8.3L, Magnesium Level 1.9 CBC/BMP Laboratory Tests 02/20/21 05:57 Microbiology Microbiology 02/19/21 Gram Stain - Final, Resulted 02/19/21 Abscess Culture, Resulted Pending 02/19/21 Anaerobic Culture, Resulted Pending 02/19/21 Blood Culture, Received Pending 02/19/21 Blood Culture, Received Pending Discharge Medications Scheduled Amlodipine Besylate/Benazepril (Lotrel 10-40 mg Capsule) 1 Cap Cap, 1 CAP PO DAILY, (Reported) Ascorbic Acid (Vitamin C) 500 Mg Capsule, 500 MG PO DAILY, (Reported) Bisoprolol/Hydrochlorothiazide (Bisoprolol-Hctz 5-6.25 mg Tab) 1 Each Tablet, 1 TAB PO DAILY, (Reported) Bupropion HCl (Bupropion HCl Sr) 150 Mg Tab.er.12h, 150 MG PO DAILY, (Reported) Cholecalciferol (Vitamin D3) (Vitamin D3) 1,000 Unit Tablet, 2,000 UNITS PO QHS, (Reported) Clindamycin Hcl (Cleocin HCl) 300 Mg Capsule, 1 CAP PO TID Cyanocobalamin (Vitamin B-12) (Vitamin B-12) 1,000 Mcg Capsule, 1,000 MCG PO DAILY, (Reported) Duloxetine HCl (Duloxetine HCl) 60 Mg Capsule.dr, 60 MG PO DAILY, (Reported) Gabapentin (Gabapentin) 100 Mg Capsule, 200 MG PO QAM, (Reported) Magnesium Oxide (Magnesium Oxide) 500 Mg Tablet, 500 MG PO QHS, (Reported) Multivitamin (Multi-Vitamin Daily) 1 Each Tablet, 1 TAB PO DAILY, (Reported) Potassium Gluconate (Potassium) 99 Mg Tablet, 595 MG PO DAILY, (Reported) Scheduled PRN Acetaminophen (Acetaminophen ER) 650 Mg Tablet.er, 650 MG PO Q8H PRN for pain, (Reported) Ibuprofen (Ibuprofen) 800 Mg Tablet, 800 MG PO DAILY PRN for PAIN, (Reported) Allergies Coded Allergies: [place] (Verified Allergy, Severe, SCRATCHY THROAT, 01/22/21) ENVIROMENTAL (Verified Allergy, Unknown, 04/06/10) Coconut (Verified Adverse Reaction, Mild, 05/08/06) banana (Verified Adverse Reaction, Unknown, 01/22/21) ROBERT DOMINGUEZ DO Feb 20, 2021 18:57
== END 2021-02-20 19:15 | disposition home or self-care (01) | DRG 144 ==
LOC: M ED 15:08 → M SDC 21:50 → M ED INP 22:29 → UNDOADMIN 22:29 → M ED INP 22:42 → M PCU 23:59
PROVIDERS: ADMIT Internal Medicine; ATTEND Otolaryngology
PROC: 0C9P0ZZ Drainage of Tonsils, Open Approach (ICD-10-PCS; principal; 2021-02-19 22:31)
DX: J36 Peritonsillar abscess (principal); Z68.42 Body mass index [BMI] 45.0-49.9, adult; I10 Essential (primary) hypertension; G43.909 Migraine, unspecified, not intractable, without status migrainosus; Z79.899 Other long term (current) drug therapy; Z91.018 Allergy to other foods; Z91.010 Allergy to peanuts; F32.9 Major depressive disorder, single episode, unspecified; F41.9 Anxiety disorder, unspecified; E66.9 Obesity, unspecified

== ENCOUNTER → 2021-03-30 | Outpatient (CLI) | payer OTHER ==
[~2021-03-30] MED LIST changes: +ACET650T15 PO; +AMOX875T2 PO; +B-12100010 PO; +BUPR15TASR PO; +CLEO300C2 PO; +D31000TA2 PO; +DULO60CA35 PO; +IBUP80TA PO; +MAGN500T12 PO; +MULTTAB86 PO; +PRED20TA PO; +SM P99TA PO; +VITA500C24 PO
--- NOTE | 2021-03-30 17:23 | REP ---
INDICATION: PAIN IN RIGHT FOOT COMPARISON: None. TECHNIQUE: AP, lateral, bilateral oblique views right foot. FINDINGS: Generalized age-related changes are appreciated. There is mild increased sclerosis and minimal joint space narrowing at the 1st metatarsophalangeal joint along with mild hallux valgus deformity. There is no evidence for acute fracture or dislocation. No subcutaneous emphysema or foreign body. IMPRESSION: Generalized age-related degenerative changes primarily involving the 1st toe.. <Electronically signed by Fili Pappas > 03/30/21 [id number]
== END ==
LOC: M RAD 16:47
PROVIDERS: ATTEND Physician Assistant
DX: M79.671 Pain in right foot (principal)

== ENCOUNTER → 2021-04-27 | Outpatient (CLI) | payer OTHER ==
--- NOTE | 2021-04-27 13:22 | REP ---
INDICATION: LOW BACK PAIN, UNSPECIFIED. COMPARISON: None. TECHNIQUE: AP and frogleg lateral views of the right hip were obtained. FINDINGS: There is no evidence of fracture or dislocation. There is no significant arthropathy. The periarticular soft tissues are normal. IMPRESSION: No evidence of fracture or significant arthropathy. <Electronically signed by Juan Gutierres > 04/27/21 [id number]
--- NOTE | 2021-04-27 13:34 | REP ---
INDICATION: LOW BACK PAIN, UNSPECIFIED. COMPARISON: 11/06/2017. TECHNIQUE: Five views lumbosacral spine. FINDINGS: There is no compression fracture or malalignment. There is a moderate anterior bridging osteophyte at L1-2. There is mild spurring of L3 through L5. There is mild disc space narrowing at all levels with mild subchondral sclerosis. There is sclerosis and spurring at the posterior facet joints of L4-5 and L5-S1. The posterior elements are intact. There is a stable sclerotic density in the medial right iliac bone likely representing a bone island. There are degenerative changes at both hips. There are multiple subcentimeter calculi throughout the left kidney. IMPRESSION: Degenerative changes of the lumbosacral spine as discussed above. Multiple left renal calculi. <Electronically signed by Steve Molina > 04/27/21 [id number]
== END ==
LOC: M RAD 11:36
PROVIDERS: ATTEND Physician Assistant
DX: M54.50 Low back pain, unspecified (principal)

== ENCOUNTER → 2021-08-31 | Outpatient (REF) | payer OTHER ==
[~2021-08-31] MED LIST changes: +BISO1TAB18 PO; -BISO5TAB2 PO; -D31000TA2 PO; +GNP99TAB3 PO; -SM P99TA PO; +VITA100093 PO
== END ==
LOC: M PLALAB 15:17
PROVIDERS: ATTEND Advanced Practice Midwife
DX: Z12.4 Encounter for screening for malignant neoplasm of cervix (principal); Z53.9 Procedure and treatment not carried out, unspecified reason

== ENCOUNTER → 2021-08-31 | Outpatient (CLI) | payer OTHER | LOC: M WHC 13:44 | PROVIDERS: ATTEND Advanced Practice Midwife | DX: Z13.820 Encounter for screening for osteoporosis (principal) ==

== ENCOUNTER → 2021-08-31 | Outpatient (REF) | payer OTHER | LOC: M SFHCWAGY 18:44 | PROVIDERS: ATTEND Advanced Practice Midwife | DX: Z12.4 Encounter for screening for malignant neoplasm of cervix (principal) | CPT/HCPCS: 87624; G0123 ==

== ENCOUNTER → 2021-11-30 | Outpatient (REF) | payer OTHER ==
[2021-11-30 13:16] LABS: ALBUMIN 3.2 GM/DL (3.2-5.2); CALCIUM LEVEL 8.9 MG/DL (8.5-10.1); CREATININE FOR GFR 1.07 MG/DL (0.55-1.30); GLOMERULAR FILTRATION RATE 56.7 (>51); PHOSPHORUS LEVEL 2.3 MG/DL (2.5-4.9); POTASSIUM SERUM 3.4 MEQ/L (3.5-5.1)
== END ==
LOC: M WUC 12:19
PROVIDERS: ATTEND Physician Assistant
DX: U07.1 COVID-19 (principal)

== ENCOUNTER → 2022-01-06 | Outpatient (CLI) | payer OTHER | LOC: M LAB 17:08 | PROVIDERS: ATTEND Physician Assistant | DX: N20.0 Calculus of kidney (principal) ==

== ENCOUNTER 2022-01-08 19:24 | Inpatient (IN) | payer OTHER ==
[~2022-01-08] VITALS: Ht 160 cm; Wt 128.4 kg
[2022-01-08] MEDS ORDERED: ISOVUE-370 76% 100ML VIAL As Ordered ONE (20:19)
[2022-01-08 20:21] LABS: HEMOGLOBIN 14.5 g/dl (12.0-15.5); MEAN CORPUSCULAR HEMOGLOBIN 32.2 pg (27.0-33.0); MEAN CORPUSCULAR HGB CONC 33.7 g/dl (32.0-36.5); MEAN CORPUSCULAR VOLUME 95.3 fl (80.0-96.0); PLATELET COUNT, AUTOMATED 251 10^3/uL (150-450); RED BLOOD COUNT 4.51 10^6/uL (4.00-5.40); WHITE BLOOD COUNT 9.7 10^3/uL (4.0-10.0)
[2022-01-08 20:40] LABS: ERYTHROCYTE SEDIMENTATION RATE 39 mm/hr (0-30)
[2022-01-08] MEDS ORDERED: MORPHINE 4 MG/ML 1ML VIAL/SYRINGE IV ONE (22:05)
[2022-01-08] MEDS ORDERED: KETOROLAC 30 MG/ML 1ML VIAL IV ONE (22:15)
[2022-01-08] MEDS ORDERED: TRAM50TA2 PO (22:50)
[2022-01-08 23:05] LABS: RSV AMPLIFICATION NEGATIVE (NEGATIVE)
[2022-01-08] MEDS ORDERED: HYDROCORTISONE 100 MG/2 ML VIAL (J1720 PER 1) IV SCH (23:05)
[2022-01-08] MEDS ORDERED: CLINDAMYCIN 600 MG in IV 1 EA IV SCH (23:05)
[2022-01-08] MEDS ORDERED: CLINDAMYCIN 600 MG in IV 1 EA IV ONE (23:30)
[2022-01-08] MEDS ORDERED: HYDROCORTISONE 100 MG/2 ML VIAL (J1720 PER 1) IV ONE (23:30)
[2022-01-09] VITALS (11 sets, daily range): BP systolic 123–134; BP diastolic 60–71; O2SAT 91–96
[2022-01-09] MEDS ORDERED: ONDANSETRON 4MG 2ML VIAL IV PRN (00:05)
[2022-01-09] MEDS ORDERED: MORPHINE 2 MG/ML 1ML VIAL IV PRN (00:05)
[2022-01-09] MEDS ORDERED: CEPH500C PO (00:38)
[2022-01-09] MEDS ORDERED: IBUP1TAB7 PO (00:38)
[2022-01-09] MEDS ORDERED: HOME MED LIST COMPLETE! XX SCH (00:40)
[2022-01-09] MEDS: KCL 40MEQ in NS 1000ML 1,000 ML IV SCH ×4 (01:13→22:55)
[2022-01-09] MEDS ORDERED: KETOROLAC 30 MG/ML 1ML VIAL IV ONE (01:40)
[2022-01-09 02:31] LABS: INR 0.93; PROTHROMBIN TIME 12.9 SECONDS (12.7-14.5)
[2022-01-09 02:32] LABS: PARTIAL THROMBOPLASTIN TIME 30.3 SECONDS (25.9-37.0)
[2022-01-09 07:44] LABS: HEMATOCRIT 37.6 % (36.0-47.0); HEMOGLOBIN 12.9 g/dl (12.0-15.5); MEAN CORPUSCULAR HEMOGLOBIN 32.3 pg (27.0-33.0); MEAN CORPUSCULAR HGB CONC 34.3 g/dl (32.0-36.5); PLATELET COUNT, AUTOMATED 200 10^3/uL (150-450); WHITE BLOOD COUNT 9.7 10^3/uL (4.0-10.0)
[2022-01-09 08:03] LABS: BLOOD UREA NITROGEN 13 MG/DL (7-18); CALCIUM LEVEL 8.3 MG/DL (8.5-10.1); CARBON DIOXIDE LEVEL 27 MEQ/L (21-32); CHLORIDE LEVEL 105 MEQ/L (98-107); GLOMERULAR FILTRATION RATE > 60.0 (>51); GLUCOSE, FASTING 188 MG/DL (70-100); MAGNESIUM LEVEL 1.8 MG/DL (1.8-2.4); POTASSIUM SERUM 3.9 MEQ/L (3.5-5.1); SODIUM LEVEL 140 MEQ/L (136-145)
[2022-01-09] MEDS: KETOROLAC 30 MG/ML 1ML VIAL IV PRN ×3 (08:31→22:54)
[2022-01-09] MEDS: HYDROCORTISONE 100 MG/2 ML VIAL (J1720 PER 1) IV SCH ×2 (08:49→17:25)
[2022-01-09] MEDS: CLINDAMYCIN 600 MG in IV 1 EA IV SCH ×2 (09:21→17:25)
[2022-01-10] VITALS (11 sets, daily range): BP systolic 116–148; BP diastolic 60–85; O2SAT 90–97
[2022-01-10] MEDS: CLINDAMYCIN 600 MG in IV 1 EA IV SCH ×3 (00:22→16:58)
[2022-01-10] MEDS: HYDROCORTISONE 100 MG/2 ML VIAL (J1720 PER 1) IV SCH ×3 (00:23→16:58)
[2022-01-10] MEDS: MORPHINE 4 MG/ML 1ML VIAL/SYRINGE IV PRN ×2 (00:24→21:55)
[2022-01-10 06:01] LABS: HEMATOCRIT 36.3 % (36.0-47.0); HEMOGLOBIN 12.4 g/dl (12.0-15.5); MEAN CORPUSCULAR HEMOGLOBIN 32.5 pg (27.0-33.0); MEAN CORPUSCULAR HGB CONC 34.2 g/dl (32.0-36.5); PLATELET COUNT, AUTOMATED 227 10^3/uL (150-450); RED BLOOD COUNT 3.82 10^6/uL (4.00-5.40)
[2022-01-10] MEDS: KCL 40MEQ in NS 1000ML 1,000 ML IV SCH (06:19)
[2022-01-10 06:24] LABS: BLOOD UREA NITROGEN 10 MG/DL (7-18); CALCIUM LEVEL 7.8 MG/DL (8.5-10.1); CARBON DIOXIDE LEVEL 25 MEQ/L (21-32); CHLORIDE LEVEL 111 MEQ/L (98-107); GLOMERULAR FILTRATION RATE > 60.0 (>51); GLUCOSE, FASTING 160 MG/DL (70-100); MAGNESIUM LEVEL 1.8 MG/DL (1.8-2.4); SODIUM LEVEL 140 MEQ/L (136-145)
[2022-01-10] MEDS: KETOROLAC 30 MG/ML 1ML VIAL IV PRN (08:38)
[2022-01-10] MEDS ORDERED: KETOROLAC 30 MG/ML 1ML VIAL IV PRN (11:30)
[2022-01-10] MEDS: ACETAMINOPHEN 500 MG TAB PO SCH ×2 (14:20→21:52)
[2022-01-10] MEDS ORDERED: IBUPROFEN 800 MG TAB PO PRN (15:00)
[2022-01-11] MEDS: CLINDAMYCIN 600 MG in IV 1 EA IV SCH ×2 (00:48→09:21)
[2022-01-11] MEDS: HYDROCORTISONE 100 MG/2 ML VIAL (J1720 PER 1) IV SCH ×2 (00:49→09:21)
[2022-01-11 04:00] VITALS: BP 133/54
[2022-01-11] MEDS: ACETAMINOPHEN 500 MG TAB PO SCH ×2 (05:33→14:12)
[2022-01-11 06:15] LABS: BLOOD UREA NITROGEN 13 MG/DL (7-18); CALCIUM LEVEL 8.8 MG/DL (8.5-10.1); CARBON DIOXIDE LEVEL 29 MEQ/L (21-32); CHLORIDE LEVEL 107 MEQ/L (98-107); CREATININE FOR GFR 0.74 MG/DL (0.55-1.30); GLOMERULAR FILTRATION RATE > 60.0 (>51); GLUCOSE, FASTING 171 MG/DL (70-100); POTASSIUM SERUM 4.1 MEQ/L (3.5-5.1); SODIUM LEVEL 138 MEQ/L (136-145)
[2022-01-11 08:00] VITALS: BP 139/77
[2022-01-11] MEDS ORDERED: CLEO300C2 PO (12:34)
[2022-01-11] MEDS ORDERED: PROBCAP14 PO (12:34)
== END 2022-01-11 14:23 | disposition home or self-care (01) | DRG 113 ==
LOC: M ED 19:24 → M ED INP 01-09 00:05 → ENRESERV 01-09 11:00 → M PCU 01-09 11:35
PROVIDERS: ADMIT Internal Medicine; ATTEND Internal Medicine Nephrology
DX: J36 Peritonsillar abscess (principal); Z68.43 Body mass index [BMI] 50.0-59.9, adult; I10 Essential (primary) hypertension; E66.01 Morbid (severe) obesity due to excess calories; G43.909 Migraine, unspecified, not intractable, without status migrainosus; Z79.899 Other long term (current) drug therapy; Z91.018 Allergy to other foods; Z91.010 Allergy to peanuts

== ENCOUNTER 2022-01-20 01:01 | Inpatient (IN) | payer OTHER ==
[~2022-01-20] VITALS: Ht 160 cm; Wt 125.8 kg
[~2022-01-20 01:01] MED LIST changes: +CEPH500C PO; +IBUP1TAB7 PO; +PROBCAP14 PO; +TRAM50TA2 PO
[2022-01-20 03:51] LABS: BASO % 0.4 % (0.0-1.0); EOS # 0.4 10^3/uL (0.0-0.5); EOS % 3.2 % (0.0-3.0); HEMATOCRIT 38.6 % (36.0-47.0); HEMOGLOBIN 13.6 g/dl (12.0-15.5); LYMPH # 1.6 10^3/uL (1.5-5.0); LYMPH % 14.6 % (24.0-44.0); MEAN CORPUSCULAR HGB CONC 35.2 g/dl (32.0-36.5); MEAN CORPUSCULAR VOLUME 93.7 fl (80.0-96.0); MONO # 1.1 10^3/uL (0.0-0.8); MONO % 10.3 % (2.0-8.0); NEUTROPHILS # 7.7 10^3/uL (1.5-8.5); NEUTROPHILS % 71.1 % (36.0-66.0); PLATELET COUNT, AUTOMATED 218 10^3/uL (150-450); RED BLOOD COUNT 4.12 10^6/uL (4.00-5.40); WHITE BLOOD COUNT 10.9 10^3/uL (4.0-10.0)
[2022-01-20 04:13] LABS: ERYTHROCYTE SEDIMENTATION RATE 45 mm/hr (0-30)
[2022-01-20 04:24] LABS: ALBUMIN 3.4 GM/DL (3.2-5.2); ALT/SGPT 42 U/L (12-78); BILIRUBIN,DIRECT 0.2 MG/DL (0.0-0.2); BILIRUBIN,TOTAL 0.8 MG/DL (0.2-1.0); BLOOD UREA NITROGEN 13 MG/DL (7-18); C REACTIVE PROTEIN QUANTITATIV 8.62 MG/DL (0.00-0.30); CALCIUM LEVEL 9.1 MG/DL (8.5-10.1); CARBON DIOXIDE LEVEL 34 MEQ/L (21-32); CHLORIDE LEVEL 99 MEQ/L (98-107); CREATININE FOR GFR 0.86 MG/DL (0.55-1.30); GLOMERULAR FILTRATION RATE > 60.0 (>51); GLUCOSE, FASTING 124 MG/DL (70-100); SODIUM LEVEL 138 MEQ/L (136-145); TOTAL PROTEIN 6.8 GM/DL (6.4-8.2)
[2022-01-20 04:32] LABS: RSV AMPLIFICATION NEGATIVE (NEGATIVE)
[2022-01-20] MEDS ORDERED: ISOVUE-370 76% 100ML VIAL As Ordered ONE (05:16)
[2022-01-20] MEDS ORDERED: dexameTHASONE 20MG/5ML VIAL (J1100 PER 1MG) IV ONE (12:55)
[2022-01-20] MEDS ORDERED: AMPICILLIN SOD/SULBACTAM SOD 3 GM in D5W MINI-BAG PLUS 100 ML IV ONE (13:05)
[2022-01-20] MEDS ORDERED: KETOROLAC 30 MG/ML 1ML VIAL IV ONE ×2 (13:10→15:30)
[2022-01-20] MEDS: NS 1,000 ML IV SCH ×3 (14:15→14:55)
[2022-01-20] MEDS ORDERED: KCL 10MEQ/100ML SWI (KRUN) 10 MEQ in IV 1 EA IV SCH (15:20)
[2022-01-20] MEDS ORDERED: OXYC1TAB23 PO (15:22)
[2022-01-20] MEDS ORDERED: PROB250C PO (15:25)
[2022-01-20] MEDS ORDERED: HOME MED LIST COMPLETE! XX SCH (15:30)
[2022-01-20] MEDS ORDERED: LIDOCAINE W/EPINEPHRINE 1% 20ML VIAL As Ordered ONE (16:55)
[2022-01-20] MEDS ORDERED: CLINDAMYCIN 900MG/6ML VIAL As Ordered ONE (16:55)
[2022-01-20] MEDS: dexameTHASONE 20MG/5ML VIAL (J1100 PER 1MG) IV SCH ×2 (18:00→23:33)
[2022-01-20] MEDS ORDERED: SUGAMMADEX SODIUM 500 MG/5 ML VIAL (BRIDION) As Ordered ONE (18:01)
[2022-01-20] MEDS ORDERED: ACETAMINOPHEN 1000MG 100ML IV BTL (OFIRMEV) (J0131 PER 10MG) As Ordered ONE (18:01)
[2022-01-20] MEDS ORDERED: ROCURONIUM BROMIDE 50 MG/5 ML VIAL As Ordered ONE (18:01)
[2022-01-20] MEDS ORDERED: dexameTHASONE 4 MG/ML 1ML VIAL (J1100 PER 1MG) As Ordered ONE (18:01)
[2022-01-20] MEDS ORDERED: SUCCINYLCHOLINE 100 MG/5 ML SYRINGE (J0330) As Ordered ONE (18:01)
[2022-01-20] MEDS ORDERED: LIDOCAINE 2% 100MG/5ML SDV (FOR ANES.) As Ordered ONE (18:01)
[2022-01-20] MEDS ORDERED: fentaNYL 100 MCG/2 ML INJECTION As Ordered ONE ×2 (18:01→18:04)
[2022-01-20] MEDS ORDERED: ONDANSETRON 4MG 2ML VIAL As Ordered ONE (18:01)
[2022-01-20] MEDS ORDERED: METOCLOPRAMIDE INJ 10MG/2ML VIAL (J2765 PER 1) As Ordered ONE (18:01)
[2022-01-20] MEDS ORDERED: propofoL 200 MG/20 ML VIAL As Ordered ONE (18:01)
[2022-01-20] MEDS ORDERED: MIDAZOLAM INJ 2MG/2ML VIAL (J2250 PER 1MG) As Ordered ONE (18:01)
[2022-01-20] MEDS ORDERED: fentaNYL 100 MCG/2 ML INJECTION IV PRN (18:15)
[2022-01-20] MEDS ORDERED: LR 1,000 ML IV SCH (18:15)
[2022-01-20] MEDS ORDERED: ONDANSETRON 4MG 2ML VIAL IV PRN (18:15)
[2022-01-20] MEDS ORDERED: oxyCODONE 5MG TAB PO PRN (18:15)
[2022-01-20] MEDS ORDERED: MORPHINE 2 MG/ML 1ML VIAL IV PRN (18:15)
[2022-01-20] MEDS ORDERED: OXYMETAZOLINE 0.05% NASAL SPRAY (AFRIN) As Ordered ONE (18:18)
[2022-01-20] MEDS ORDERED: DESFLURANE 240 ML INHALANT As Ordered ONE (18:34)
[2022-01-20 20:02] VITALS: BP 129/62
[2022-01-20 20:11] VITALS: BP 125/60
[2022-01-20] MEDS: cefTRIAXone SOD 2 GM in D5W MINI-BAG PLUS 50 ML IV SCH (20:43)
[2022-01-20] MEDS: KETOROLAC 30 MG/ML 1ML VIAL IV PRN (20:43)
[2022-01-20] MEDS: KCL 10MEQ/100ML SWI (KRUN) 10 MEQ in IV 1 EA IV SCH ×2 (20:43→23:32)
[2022-01-20] MEDS ORDERED: VANCOMYCIN HCL 1,000 MG, VIAL MATE ADAPTER 1 EACH in NS 250 ML IV SCH (20:50)
[2022-01-20 21:00] VITALS: BP 113/55
[2022-01-20 22:00] VITALS: BP 121/60
[2022-01-20] MEDS ORDERED: VANCOMYCIN HCL 1,000 MG, VIAL MATE ADAPTER 1 EACH in NS 250 ML IV ONE ×2 (22:00→23:00)
[2022-01-20 23:00] VITALS: BP 122/65
[2022-01-21] VITALS (13 sets, daily range): BP systolic 108–143; BP diastolic 58–86; O2SAT 93
[2022-01-21] MEDS: dexameTHASONE 20MG/5ML VIAL (J1100 PER 1MG) IV SCH ×3 (06:18→18:28)
[2022-01-21] MEDS ORDERED: D5W/0.45% SODIUM CHLORIDE 1,000 ML IV SCH (07:20)
[2022-01-21] MEDS ORDERED: GLUCOSE 4GM CHEW TABLET PO PRN (07:20)
[2022-01-21] MEDS ORDERED: GLUCAGON INJ 1MG VIAL SC PRN (07:20)
[2022-01-21] MEDS ORDERED: DEXTROSE 50% 50 ML SYRINGE IV PRN (07:20)
[2022-01-21] MEDS ORDERED: METOCLOPRAMIDE INJ 10MG/2ML VIAL (J2765 PER 1) IV ONE (07:35)
[2022-01-21 07:38] LABS: BASO % 0.1 % (0.0-1.0); HEMATOCRIT 36.6 % (36.0-47.0); HEMOGLOBIN 12.6 g/dl (12.0-15.5); LYMPH % 6.9 % (24.0-44.0); MEAN CORPUSCULAR HEMOGLOBIN 32.8 pg (27.0-33.0); MEAN CORPUSCULAR HGB CONC 34.4 g/dl (32.0-36.5); MEAN CORPUSCULAR VOLUME 95.3 fl (80.0-96.0); MONO # 0.2 10^3/uL (0.0-0.8); MONO % 1.3 % (2.0-8.0); NEUTROPHILS % 90.7 % (36.0-66.0); PLATELET COUNT, AUTOMATED 239 10^3/uL (150-450); RED BLOOD COUNT 3.84 10^6/uL (4.00-5.40); WHITE BLOOD COUNT 14.4 10^3/uL (4.0-10.0)
[2022-01-21] MEDS: VANCOMYCIN HCL 750 MG, VIAL MATE ADAPTER 1 EACH in D5W 250 ML IV SCH ×4 (07:43→21:16)
[2022-01-21] MEDS: KETOROLAC 30 MG/ML 1ML VIAL IV PRN ×2 (07:44→18:28)
[2022-01-21 07:57] LABS: ERYTHROCYTE SEDIMENTATION RATE 51 mm/hr (0-30)
[2022-01-21 08:04] LABS: BLOOD UREA NITROGEN 12 MG/DL (7-18); C REACTIVE PROTEIN QUANTITATIV 8.74 MG/DL (0.00-0.30); CALCIUM LEVEL 8.5 MG/DL (8.5-10.1); CARBON DIOXIDE LEVEL 30 MEQ/L (21-32); CHLORIDE LEVEL 105 MEQ/L (98-107); CREATININE FOR GFR 0.71 MG/DL (0.55-1.30); GLOMERULAR FILTRATION RATE > 60.0 (>51); GLUCOSE, FASTING 175 MG/DL (70-100); POTASSIUM SERUM 3.8 MEQ/L (3.5-5.1); SODIUM LEVEL 139 MEQ/L (136-145)
[2022-01-21] MEDS: metroNIDAZOLE 500 MG in IV 1 EA IV SCH ×2 (09:52→17:18)
[2022-01-21] MEDS: cefTRIAXone SOD 2 GM in D5W MINI-BAG PLUS 50 ML IV SCH (16:04)
[2022-01-21] MEDS ORDERED: FIORICET TAB PO ONE (20:35)
[2022-01-22] MEDS: dexameTHASONE 20MG/5ML VIAL (J1100 PER 1MG) IV SCH ×5 (00:42→23:22)
[2022-01-22] MEDS: metroNIDAZOLE 500 MG in IV 1 EA IV SCH (00:42)
[2022-01-22 06:00] VITALS: BP 125/61
[2022-01-22] MEDS ORDERED: traMADol 50 MG TAB PO PRN (07:45)
[2022-01-22] MEDS ORDERED: KETOROLAC 30 MG/ML 1ML VIAL IV ONE (07:45)
[2022-01-22] MEDS ORDERED: ACETAMINOPHEN TAB 650MG DOSE (2X325MG) PO PRN (07:45)
[2022-01-22] MEDS ORDERED: METOCLOPRAMIDE INJ 10MG/2ML VIAL (J2765 PER 1) IV ONE (08:15)
[2022-01-22] MEDS ORDERED: RIZATRIPTAN MLT 10 MG TAB PO ONE (08:15)
[2022-01-22] MEDS: LACTOBACILLUS ACIDOPHILUS CAP (BACID) PO SCH ×4 (08:43→22:19)
[2022-01-22] MEDS: AMPICILLIN SOD/SULBACTAM SOD 3 GM in D5W MINI-BAG PLUS 100 ML IV SCH ×3 (08:43→22:19)
[2022-01-22 08:46] LABS: BASO % 0.2 % (0.0-1.0); HEMATOCRIT 35.5 % (36.0-47.0); HEMOGLOBIN 12.7 g/dl (12.0-15.5); LYMPH # 0.9 10^3/uL (1.5-5.0); LYMPH % 4.7 % (24.0-44.0); MEAN CORPUSCULAR HEMOGLOBIN 33.5 pg (27.0-33.0); MEAN CORPUSCULAR HGB CONC 35.8 g/dl (32.0-36.5); MEAN CORPUSCULAR VOLUME 93.7 fl (80.0-96.0); MONO # 0.5 10^3/uL (0.0-0.8); MONO % 2.7 % (2.0-8.0); NEUTROPHILS % 90.5 % (36.0-66.0); PLATELET COUNT, AUTOMATED 290 10^3/uL (150-450); RED BLOOD COUNT 3.79 10^6/uL (4.00-5.40); WHITE BLOOD COUNT 19.9 10^3/uL (4.0-10.0)
[2022-01-22 09:25] LABS: BLOOD UREA NITROGEN 19 MG/DL (7-18); CALCIUM LEVEL 9.3 MG/DL (8.5-10.1); CARBON DIOXIDE LEVEL 31 MEQ/L (21-32); CHLORIDE LEVEL 106 MEQ/L (98-107); CREATININE FOR GFR 0.76 MG/DL (0.55-1.30); GLOMERULAR FILTRATION RATE > 60.0 (>51); GLUCOSE, FASTING 183 MG/DL (70-100); POTASSIUM SERUM 3.3 MEQ/L (3.5-5.1); SODIUM LEVEL 140 MEQ/L (136-145)
[2022-01-22] MEDS ORDERED: POTASSIUM CHLORIDE 10MEQ SR TABLET PO ONE (11:00)
[2022-01-22 14:00] VITALS: BP 148/96
[2022-01-22] MEDS: RIZATRIPTAN MLT 10 MG TAB PO PRN ×2 (16:05→23:22)
[2022-01-22 22:00] VITALS: BP 164/85
[2022-01-23] MEDS: AMPICILLIN SOD/SULBACTAM SOD 3 GM in D5W MINI-BAG PLUS 100 ML IV SCH ×2 (03:20→08:50)
[2022-01-23] MEDS ORDERED: CALCIUM CARBONATE 500 MG CHEW U/D PO PRN (03:45)
[2022-01-23] MEDS: dexameTHASONE 20MG/5ML VIAL (J1100 PER 1MG) IV SCH (05:28)
[2022-01-23 06:00] VITALS: BP 140/90
[2022-01-23 06:13] LABS: BASO % 0.2 % (0.0-1.0); HEMATOCRIT 34.1 % (36.0-47.0); LYMPH # 1.1 10^3/uL (1.5-5.0); LYMPH % 6.5 % (24.0-44.0); MEAN CORPUSCULAR HEMOGLOBIN 33.5 pg (27.0-33.0); MEAN CORPUSCULAR HGB CONC 35.2 g/dl (32.0-36.5); MEAN CORPUSCULAR VOLUME 95.3 fl (80.0-96.0); MONO # 0.5 10^3/uL (0.0-0.8); MONO % 3.1 % (2.0-8.0); NEUTROPHILS % 87.2 % (36.0-66.0); PLATELET COUNT, AUTOMATED 276 10^3/uL (150-450); RED BLOOD COUNT 3.58 10^6/uL (4.00-5.40); WHITE BLOOD COUNT 16.1 10^3/uL (4.0-10.0)
[2022-01-23 06:41] LABS: BLOOD UREA NITROGEN 17 MG/DL (7-18); CARBON DIOXIDE LEVEL 33 MEQ/L (21-32); CHLORIDE LEVEL 107 MEQ/L (98-107); CREATININE FOR GFR 0.78 MG/DL (0.55-1.30); GLOMERULAR FILTRATION RATE > 60.0 (>51); GLUCOSE, FASTING 214 MG/DL (70-100); POTASSIUM SERUM 3.8 MEQ/L (3.5-5.1); SODIUM LEVEL 142 MEQ/L (136-145)
[2022-01-23] MEDS ORDERED: BACITAB PO (07:55)
[2022-01-23] MEDS ORDERED: AMOX875T2 PO (07:55)
[2022-01-23 08:49] VITALS: BP 149/90
[2022-01-23] MEDS: LACTOBACILLUS ACIDOPHILUS CAP (BACID) PO SCH (08:49)
[2022-01-23] MEDS ORDERED: bisoproloL fumarate 5 MG TAB PO SCH (09:00)
[2022-01-23] MEDS ORDERED: DULoxetine 30MG CAPSULE (CYMBALTA) PO SCH (09:00)
[2022-01-23] MEDS ORDERED: buPROPion **SR TABLET** (ZYBAN) 150MG PO SCH (09:00)
[2022-01-23] MEDS ORDERED: BENAZEPRIL 20 MG TAB PO SCH (09:00)
[2022-01-23] MEDS ORDERED: PERC5TAB12 PO (09:31)
== END 2022-01-23 10:12 | disposition home or self-care (01) | DRG 97 ==
LOC: M ED 01:01 → M ED INP 15:00 → ENRESERV 19:40 → M ICU 20:29 → M MSPAV 01-21 16:13
PROVIDERS: ADMIT General Practice; ATTEND General Practice
PROC: 3E0333Z Introduction of Anti-inflammatory into Peripheral Vein, Percutaneous Approach (ICD-10-PCS; principal; 2022-01-20 16:00)
PROC: 0C9P0ZZ Drainage of Tonsils, Open Approach (ICD-10-PCS; 2022-01-21)
PROC: 09JK8ZZ Inspection of Nasal Mucosa and Soft Tissue, Via Natural or Artificial Opening Endoscopic (ICD-10-PCS; 2022-01-21)
DX: J39.0 Retropharyngeal and parapharyngeal abscess (principal); B95.8 Unspecified staphylococcus as the cause of diseases classified elsewhere; E66.01 Morbid (severe) obesity due to excess calories; G43.909 Migraine, unspecified, not intractable, without status migrainosus; I10 Essential (primary) hypertension; Z68.42 Body mass index [BMI] 45.0-49.9, adult; Z90.49 Acquired absence of other specified parts of digestive tract; Z79.899 Other long term (current) drug therapy; Z91.018 Allergy to other foods; Z91.010 Allergy to peanuts; E87.6 Hypokalemia; G47.30 Sleep apnea, unspecified; R04.0 Epistaxis

== ENCOUNTER 2022-09-02 07:13 | Emergency (ER) | payer OTHER ==
[~2022-09-02] VITALS: Ht 160 cm; Wt 127.5 kg
[~2022-09-02 07:13] MED LIST changes: +BACITAB PO; +OXYC1TAB23 PO; +PROB250C PO
[2022-09-02] MEDS ORDERED: IBUP200C33 PO (07:23)
[2022-09-02] MEDS ORDERED: NS 1,000 ML IV ONE (08:10)
[2022-09-02 08:21] LABS: BASO % 0.5 % (0.0-1.0); EOS # 0.2 10^3/uL (0.0-0.5); EOS % 2.9 % (0.0-3.0); HEMATOCRIT 43.2 % (36.0-47.0); HEMOGLOBIN 14.1 g/dl (12.0-15.5); LYMPH # 1.1 10^3/uL (1.5-5.0); LYMPH % 14.9 % (24.0-44.0); MEAN CORPUSCULAR HEMOGLOBIN 31.4 pg (27.0-33.0); MEAN CORPUSCULAR HGB CONC 32.6 g/dl (32.0-36.5); MEAN CORPUSCULAR VOLUME 96.2 fl (80.0-96.0); MONO # 0.8 10^3/uL (0.0-0.8); MONO % 10.1 % (2.0-8.0); NEUTROPHILS # 5.3 10^3/uL (1.5-8.5); NEUTROPHILS % 71.3 % (36.0-66.0); PLATELET COUNT, AUTOMATED 239 10^3/uL (150-450); RED BLOOD COUNT 4.49 10^6/uL (4.00-5.40); WHITE BLOOD COUNT 7.5 10^3/uL (4.0-10.0)
[2022-09-02 08:47] LABS: ALBUMIN 3.3 G/DL (3.2-5.2); BILIRUBIN,DIRECT 0.2 MG/DL (<0.4); BILIRUBIN,TOTAL 0.6 MG/DL (0.3-1.2); CREATININE FOR GFR 1.18 MG/DL (0.55-1.30); GLOMERULAR FILTRATION RATE 50.6 (>51); POTASSIUM SERUM 3.5 MMOL/L (3.5-5.1); TOTAL PROTEIN 6.4 G/DL (5.7-8.2)
[2022-09-02] MEDS ORDERED: FLOM0.4C39 PO (10:32)
[2022-09-02] MEDS ORDERED: MACR100C43 PO (10:37)
[2022-09-02] MEDS ORDERED: PERC5TAB12 PO (10:49)
[2022-09-02 10:50] VITALS: BP 148/73
== END 2022-09-02 11:04 | disposition home or self-care (01) ==
LOC: M ED 07:13
DX: N13.2 Hydronephrosis with renal and ureteral calculous obstruction (principal); N23 Unspecified renal colic; N28.1 Cyst of kidney, acquired; R31.9 Hematuria, unspecified; R91.1 Solitary pulmonary nodule; I10 Essential (primary) hypertension; F10.10 Alcohol abuse, uncomplicated; F32.A Depression, unspecified; Z87.442 Personal history of urinary calculi; Z91.010 Allergy to peanuts; Z91.018 Allergy to other foods; Z79.2 Long term (current) use of antibiotics; Z79.811 Long term (current) use of aromatase inhibitors; Z79.899 Other long term (current) drug therapy

== ENCOUNTER → 2022-12-01 | Outpatient (CLI) | payer MEDICAID, OTHER ==
[~2022-12-01] MED LIST changes: +IBUP200C33 PO; +MACR100C43 PO
== END ==
LOC: M RAD 15:49
PROVIDERS: ATTEND Physician Assistant
DX: R91.8 Other nonspecific abnormal finding of lung field (principal)

== ENCOUNTER → 2022-12-16 | Outpatient (CLI) | payer MEDICAID | LOC: M SLEEP 20:00 | PROVIDERS: ATTEND Nurse Practitioner Family | DX: G47.33 Obstructive sleep apnea (adult) (pediatric) (principal) ==

== ENCOUNTER 2023-01-25 15:51 | Emergency (ER) | payer OTHER ==
[~2023-01-25] VITALS: Ht 160 cm; Wt 130.7 kg
[2023-01-25] MEDS ORDERED: KETOROLAC 30 MG/ML 1ML VIAL IV ONE (23:00)
[2023-01-25] MEDS ORDERED: methocarbamoL 500 MG TAB PO ONE (23:00)
[2023-01-25] MEDS ORDERED: dexAMETHasone 20MG/5ML VIAL IV ONE (23:00)
[2023-01-25] MEDS ORDERED: CLEO300C2 PO (23:38)
[2023-01-25] MEDS ORDERED: GASTROGRAFIN SOLUTION 30ML As Ordered ONE (23:38)
[2023-01-25] MEDS ORDERED: CLINDAMYCIN 150MG CAPSULE PO ONE (23:40)
[2023-01-25 23:41] LABS: BASO # 0.1 10^3/uL (0.0-0.2); BASO % 0.8 % (0.0-1.0); EOS # 0.3 10^3/uL (0.0-0.5); HEMATOCRIT 43.8 % (36.0-47.0); HEMOGLOBIN 14.9 g/dl (12.0-15.5); MEAN CORPUSCULAR HEMOGLOBIN 32.3 pg (27.0-33.0); MONO # 0.7 10^3/uL (0.0-0.8); MONO % 10.7 % (2.0-8.0); NEUTROPHILS # 3.1 10^3/uL (1.5-8.5); PLATELET COUNT, AUTOMATED 208 10^3/uL (150-450); RED BLOOD COUNT 4.61 10^6/uL (4.00-5.40); WHITE BLOOD COUNT 6.2 10^3/uL (4.0-10.0)
[2023-01-26 00:07] LABS: BLOOD UREA NITROGEN 14 MG/DL (9-23); CARBON DIOXIDE LEVEL 28 MMOL/L (20-31); CHLORIDE LEVEL 102 MMOL/L (98-107); CREATININE FOR GFR 0.61 MG/DL (0.55-1.30); GLOMERULAR FILTRATION RATE > 60.0 (>51); GLUCOSE, FASTING 119 MG/DL (60-100); POTASSIUM SERUM 3.7 MMOL/L (3.5-5.1); SODIUM LEVEL 140 MMOL/L (136-145)
[2023-01-26] MEDS ORDERED: PRED20TA PO (00:48)
[2023-01-26] MEDS ORDERED: METH-1164 PO (00:48)
[2023-01-26 00:49] VITALS: TEMP 96.2
[2023-01-26] MEDS ORDERED: PERCOCET 5MG/325MG TAB PO ONE (00:50)
[2023-01-26 03:01] VITALS: BP 129/62; O2SAT 94
[2023-01-26] MEDS ORDERED: CIPR-249 PO (03:53)
== END 2023-01-26 04:07 | disposition home or self-care (01) ==
LOC: M ED 15:51
DX: N39.0 Urinary tract infection, site not specified (principal); G43.909 Migraine, unspecified, not intractable, without status migrainosus; Z87.442 Personal history of urinary calculi; Z91.018 Allergy to other foods; Z91.048 Other nonmedicinal substance allergy status; Z79.2 Long term (current) use of antibiotics; Z79.52 Long term (current) use of systemic steroids; Z79.899 Other long term (current) drug therapy
CPT/HCPCS: 72125; 74176; 80048; 81001; 85025; 87086; 96374; 99284; J1100; J1885

== ENCOUNTER → 2023-04-26 | Outpatient (CLI) | payer OTHER ==
[~2023-04-26] MED LIST changes: +METH-1164 PO
[2023-04-26 18:18] LABS: APPEARANCE, URINE HAZY (CLEAR); BACTERIA, URINE AUTO 1+ (NEGATIVE); BILIRUBIN, URINE AUTO NEGATIVE (NEGATIVE); BLOOD, URINE BLOOD 2+ (NEGATIVE); COLOR, URINE YELLOW (YELLOW); GLUCOSE, URINE (UA) AUTO NEGATIVE (NEGATIVE); KETONE, URINE AUTO NEGATIVE (NEGATIVE); LEUKOCYTE ESTERASE, URINE AUTO TRACE (NEGATIVE); NITRITE, URINE AUTO NEGATIVE (NEGATIVE); PROTEIN, URINE AUTO 2+ mg/dL (NEGATIVE); RBC, URINE AUTO TNTC /HPF (0-3); SPECIFIC GRAVITY URINE AUTO 1.018 (1.002-1.035); SQUAMOUS EPITHELIAL CELL UR AU 3 /HPF (0-6); URIC ACID CRYSTALS MODERATE; UROBILINOGEN, URINE AUTO 0.2 mg/dL (0.0-2.0); WBC, URINE AUTO 10 /HPF (0-3)
== END ==
LOC: M RAD 14:03
PROVIDERS: ATTEND Urology
DX: R31.0 Gross hematuria (principal)

== ENCOUNTER → 2023-05-12 | Outpatient (CLI) | payer OTHER | LOC: M RAD 12:13 | PROVIDERS: ATTEND Urology | DX: N20.0 Calculus of kidney (principal) ==

== ENCOUNTER → 2023-05-15 | Outpatient (REF) | payer OTHER | LOC: M SMT 09:53 | PROVIDERS: ATTEND Urology | DX: N20.0 Calculus of kidney (principal) ==

== ENCOUNTER → 2023-07-04 | Outpatient (REF) | payer OTHER, MEDICAID ==
[2023-07-04 19:51] LABS: AMORPHOUS SEDIMENT SMALL (NEGATIVE); APPEARANCE, URINE CLOUDY (CLEAR); BACTERIA, URINE AUTO 1+ (NEGATIVE); BILIRUBIN, URINE AUTO NEGATIVE (NEGATIVE); BLOOD, URINE BLOOD NEGATIVE (NEGATIVE); COLOR, URINE AMBER (YELLOW); GLUCOSE, URINE (UA) AUTO 1+ mg/dL (NEGATIVE); KETONE, URINE AUTO NEGATIVE (NEGATIVE); LEUKOCYTE ESTERASE, URINE AUTO TRACE (NEGATIVE); NITRITE, URINE AUTO NEGATIVE (NEGATIVE); PROTEIN, URINE AUTO NEGATIVE (NEGATIVE); RBC, URINE AUTO 11 /HPF (0-3); SPECIFIC GRAVITY URINE AUTO 1.017 (1.002-1.035); SQUAMOUS EPITHELIAL CELL UR AU 5 /HPF (0-6); UROBILINOGEN, URINE AUTO 0.2 mg/dL (0.0-2.0); WBC, URINE AUTO 6 /HPF (0-3)
== END ==
LOC: M SMT 17:09
PROVIDERS: ATTEND Urology
DX: N39.0 Urinary tract infection, site not specified (principal)

== ENCOUNTER 2023-07-23 14:51 | Inpatient (IN) | payer MEDICAID, OTHER ==
[~2023-07-23] VITALS: Ht 167.6 cm; Wt 131.4 kg
[2023-07-23 17:18] LABS: BASO % 0.7 % (0.0-1.0); EOS # 0.2 10^3/uL (0.0-0.5); EOS % 3.6 % (0.0-3.0); HEMATOCRIT 44.3 % (36.0-47.0); HEMOGLOBIN 15.6 g/dl (12.0-15.5); LYMPH # 2.1 10^3/uL (1.5-5.0); LYMPH % 34.9 % (24.0-44.0); MEAN CORPUSCULAR HEMOGLOBIN 33.1 pg (27.0-33.0); MEAN CORPUSCULAR HGB CONC 35.2 g/dl (32.0-36.5); MEAN CORPUSCULAR VOLUME 94.1 fl (80.0-96.0); MONO # 0.6 10^3/uL (0.0-0.8); NEUTROPHILS % 50.3 % (36.0-66.0); PLATELET COUNT, AUTOMATED 256 10^3/uL (150-450); RED BLOOD COUNT 4.71 10^6/uL (4.00-5.40); WHITE BLOOD COUNT 5.9 10^3/uL (4.0-10.0)
[2023-07-23] MEDS ORDERED: KETOROLAC 30 MG/ML 1ML VIAL IV ONE (17:30)
[2023-07-23 20:45] LABS: ALBUMIN 3.1 G/DL (3.2-5.2); ALKALINE PHOSPHATASE 99 U/L (46-116); ALT/SGPT 75 U/L (7.0-40); AST/SGOT 49 U/L (<34); BILIRUBIN,TOTAL 0.5 MG/DL (0.3-1.2); BLOOD UREA NITROGEN 10 MG/DL (9-23); CALCIUM LEVEL 8.8 MG/DL (8.5-10.1); CARBON DIOXIDE LEVEL 31 MMOL/L (20-31); CHLORIDE LEVEL 107 MMOL/L (98-107); CREATININE FOR GFR 0.71 MG/DL (0.55-1.30); GLOMERULAR FILTRATION RATE > 60.0 (>51); GLUCOSE, FASTING 147 MG/DL (60-100); MAGNESIUM LEVEL 1.7 MG/DL (1.8-2.4); POTASSIUM SERUM 3.4 MMOL/L (3.5-5.1); SODIUM LEVEL 143 MMOL/L (136-145)
[2023-07-23] MEDS ORDERED: ONDANSETRON 4MG 2ML VIAL IV PRN (21:30)
[2023-07-23] MEDS ORDERED: KETOROLAC 30 MG/ML 1ML VIAL IV PRN (21:30)
[2023-07-23] MEDS ORDERED: NITR100C2 PO (21:47)
[2023-07-23] MEDS ORDERED: BUPR300T92 PO (21:47)
[2023-07-23] MEDS ORDERED: MULT1CAP3 PO (21:47)
[2023-07-23] MEDS ORDERED: ZINC220CA PO (21:47)
[2023-07-23] MEDS ORDERED: VITA500C24 PO (21:47)
[2023-07-23] MEDS ORDERED: HOME MED LIST COMPLETE! XX SCH (21:50)
[2023-07-23] MEDS: NS 1,000 ML IV SCH (22:30)
[2023-07-23] MEDS: TAMSULOSIN 0.4 MG CAP PO SCH (22:30)
[2023-07-24] MEDS: PERCOCET 5MG/325MG TAB PO PRN ×2 (01:17→09:00)
[2023-07-24 03:15] VITALS: BP 137/79; TEMP 97.3; O2SAT 99
[2023-07-24 08:54] VITALS: BP 140/80
[2023-07-24] MEDS: TAMSULOSIN 0.4 MG CAP PO SCH (08:54)
[2023-07-24] MEDS ORDERED: bisoproloL fumarate 5 MG TAB PO SCH (09:00)
[2023-07-24] MEDS ORDERED: lisinopriL 40MG TAB PO SCH (09:00)
[2023-07-24] MEDS ORDERED: ZINC SULFATE 220 MG CAP PO SCH (09:00)
[2023-07-24] MEDS ORDERED: VITAMIN D 1,000 INTERNATIONAL UNITS TABLET PO SCH (09:00)
[2023-07-24] MEDS ORDERED: DULoxetine 30MG CAPSULE (CYMBALTA) PO SCH (09:00)
[2023-07-24] MEDS ORDERED: POTASSIUM CHLORIDE 10MEQ SR TABLET PO SCH (09:00)
[2023-07-24] MEDS ORDERED: ASCORBIC ACID 500 MG TAB PO SCH (09:00)
[2023-07-24] MEDS ORDERED: HEPARIN SOD (PORCINE) 5000UNITS/ML 1ML VIAL/SYRINGE SQ SCH (09:00)
[2023-07-24] MEDS ORDERED: BENAZEPRIL 20 MG TAB PO SCH (09:00)
[2023-07-24] MEDS ORDERED: buPROPion **XL** TABLET 150MG (WELLBUTRIN XL) PO SCH (09:00)
[2023-07-24] MEDS ORDERED: HYDROCHLOROthiazide 6.25MG PER 1/4TAB PO SCH (09:00)
[2023-07-24] MEDS ORDERED: SODIUM CHLORIDE NASAL 0.65% SPRAY BTL (OCEAN) SCH (09:00)
[2023-07-24] MEDS ORDERED: MAGNESIUM OXIDE 400MG TAB (MAG-OX) PO SCH (09:00)
[2023-07-24] MEDS: NS 1,000 ML IV SCH ×2 (10:13→12:54)
[2023-07-24] MEDS ORDERED: PERCOCET PO (13:06)
[2023-07-24] MEDS ORDERED: FLOM0.4C39 PO (13:06)
== END 2023-07-24 15:05 | disposition home or self-care (01) | DRG 465 ==
LOC: M ED 14:51 → M ED INP 21:30 → ENRESERV 07-24 02:36 → M MS5PR 07-24 03:00
PROVIDERS: ADMIT Internal Medicine; ATTEND Internal Medicine Nephrology
DX: N20.1 Calculus of ureter (principal); I31.8 Other specified diseases of pericardium; Z91.018 Allergy to other foods; I10 Essential (primary) hypertension; F32.A Depression, unspecified; Z79.899 Other long term (current) drug therapy; K57.90 Diverticulosis of intestine, part unspecified, without perforation or abscess without bleeding

== ENCOUNTER 2023-08-02 09:22 | Day surgery (SDC) | payer OTHER ==
[~2023-08-02] VITALS: Ht 160 cm; Wt 132.1 kg
[~2023-08-02 09:22] MED LIST changes: +APPLTAB3 PO; +B-12100020 PO; +BUPR300T92 PO; +CINN500C2 PO; +CVS-161 PO; +MULT1CAP3 PO; +NITR100C2 PO; +ZINC220CA PO; +[UNRECOGNIZED DRUG - OTHER] PO; +ceFAZolin SOD 1 GM in D5W MINI-BAG PLUS 50 ML IV ONE; +ceFAZolin SOD 2 GM in IV 1 EA IV ONE
[2023-08-02] MEDS ORDERED: LR 1,000 ML IV SCH ×2 (09:50→12:15)
[2023-08-02] MEDS ORDERED: ISOVUE-300 61% 100ML VIAL As Ordered ONE (10:26)
[2023-08-02] MEDS ORDERED: LIDOCAINE 2% 100MG/5ML SDV (FOR ANES.) As Ordered ONE ×2 (10:31→10:36)
[2023-08-02] MEDS ORDERED: ONDANSETRON 4MG 2ML VIAL As Ordered ONE (10:31)
[2023-08-02] MEDS ORDERED: fentaNYL 100 MCG/2 ML INJECTION As Ordered ONE ×2 (10:31→11:54)
[2023-08-02] MEDS ORDERED: propofoL 200 MG/20 ML VIAL As Ordered ONE ×4 (10:31→11:54)
[2023-08-02] MEDS ORDERED: MIDAZOLAM INJ 2MG/2ML VIAL As Ordered ONE (10:32)
[2023-08-02] MEDS ORDERED: VASOPRESSIN INJ 20UNITS/ML 1ML VIAL As Ordered ONE (11:34)
[2023-08-02] MEDS ORDERED: PHENYLephrine 500MCG 5ML (100MCG/ML) SYRINGE As Ordered ONE (12:05)
[2023-08-02] MEDS ORDERED: ONDANSETRON 4MG 2ML VIAL IV PRN (12:15)
[2023-08-02] MEDS ORDERED: fentaNYL 100 MCG/2 ML INJECTION IV PRN (12:15)
[2023-08-02] MEDS ORDERED: oxyBUTYnin *DITROPAN XL* 5 MG TABCR PO STA (12:39)
[2023-08-02] MEDS ORDERED: PERCOCET PO (12:45)
[2023-08-02] MEDS ORDERED: OXYB5TAB11 PO (12:45)
[2023-08-02] MEDS: oxyCODONE 5MG TAB PO PRN ×2 (12:56→13:38)
[2023-08-02] MEDS ORDERED: PERCOCET 5MG/325MG TAB PO PRN (13:15)
[2023-08-02] MEDS ORDERED: oxyBUTYnin 5 MG TAB PO PRN (13:15)
[2023-08-02 14:25] VITALS: BP 116/69; TEMP 98.4; O2SAT 95
== END 2023-08-02 14:30 | disposition home or self-care (01) ==
LOC: M SDC 09:22
PROVIDERS: ATTEND Urology
DX: N20.2 Calculus of kidney with calculus of ureter (principal); I10 Essential (primary) hypertension; K21.9 Gastro-esophageal reflux disease without esophagitis; F41.9 Anxiety disorder, unspecified; F32.A Depression, unspecified; G47.33 Obstructive sleep apnea (adult) (pediatric); Z79.899 Other long term (current) drug therapy; Z87.891 Personal history of nicotine dependence; J30.2 Other seasonal allergic rhinitis; Z91.010 Allergy to peanuts
CPT/HCPCS: 52356; 76000; 82365; C2617; J0690; J1100; J2250; J2371; J2405; J2598; J3010; Q9967

== ENCOUNTER → 2024-02-22 | Outpatient (CLI) | payer OTHER ==
[~2024-02-22] MED LIST changes: +BUPR-597 PO; -BUPR300T92 PO; +OXYB5TAB14 PO; -ceFAZolin SOD 1 GM in D5W MINI-BAG PLUS 50 ML IV ONE; -ceFAZolin SOD 2 GM in IV 1 EA IV ONE
== END ==
LOC: M RAD 14:05
PROVIDERS: ATTEND Urology
DX: N20.0 Calculus of kidney (principal)

== ENCOUNTER → 2024-08-12 | Outpatient (CLI) | payer OTHER ==
[2024-08-12 11:05] LABS: HEMATOCRIT 44.6 % (36.0-47.0); HEMOGLOBIN 15.2 g/dl (12.0-15.5); MEAN CORPUSCULAR HEMOGLOBIN 32.4 pg (27.0-33.0); MEAN CORPUSCULAR HGB CONC 34.1 g/dl (32.0-36.5); MEAN CORPUSCULAR VOLUME 95.1 fl (80.0-96.0); PLATELET COUNT, AUTOMATED 220 10^3/uL (150-450); RED BLOOD COUNT 4.69 10^6/uL (4.00-5.40)
[2024-08-12 11:56] LABS: THYROID STIMULATING HORMONE 1.536 uIU/ML (0.55-4.78)
[2024-08-12 11:58] LABS: ALBUMIN 3.2 G/DL (3.2-5.2); ALKALINE PHOSPHATASE 87 U/L (35-104); ALT/SGPT 82 U/L (7.0-40); AST/SGOT 47 U/L (<34); BILIRUBIN,TOTAL 0.6 MG/DL (0.3-1.2); BLOOD UREA NITROGEN 14 MG/DL (9-23); CALCIUM LEVEL 9.3 MG/DL (8.5-10.1); CARBON DIOXIDE LEVEL 33 MMOL/L (20-31); CHLORIDE LEVEL 103 MMOL/L (98-107); CHOLESTEROL LEVEL 203 MG/DL (<200); CHOLESTEROL RISK RATIO 4.04 (<5); CREATININE FOR GFR 0.76 MG/DL (0.55-1.30); GLOMERULAR FILTRATION RATE > 60.0 (>51); GLUCOSE, FASTING 224 MG/DL (60-100); HDL CHOLESTEROL 50.2 MG/DL (>40); NON-HDL-C 152.8 MG/DL; POTASSIUM SERUM 3.8 MMOL/L (3.5-5.1); SODIUM LEVEL 144 MMOL/L (136-145); TOTAL PROTEIN 6.4 G/DL (5.7-8.2); TRIGLYCERIDES LEVEL 134 MG/DL (<150)
[2024-08-13 06:42] LABS: WHITE BLOOD COUNT 6.2 10^3/uL (4.0-10.0)
== END ==
LOC: M LAB 10:19
PROVIDERS: ATTEND Physician Assistant
DX: I10 Essential (primary) hypertension (principal); R73.01 Impaired fasting glucose; E78.5 Hyperlipidemia, unspecified

== ENCOUNTER → 2025-02-12 | Outpatient (CLI) | payer OTHER ==
[~2025-02-12] MED LIST changes: +ACET-1515 PO; -ACET650T15 PO; -BUPR-597 PO; +BUPR-766 PO; -FLOM0.4C39 PO; +TAMS-18 PO; +TOPI-256; -TOPI25TA10
[2025-02-12 11:06] LABS: CHOLESTEROL LEVEL 138.0 MG/DL (<200); CHOLESTEROL RISK RATIO 2.62 (<5); LDL CHOLESTEROL 67.6 MG/DL (<100); NON-HDL-C 85.4 MG/DL; TRIGLYCERIDES LEVEL 89.0 MG/DL (<150)
[2025-02-12 11:49] LABS: ESTIMATED AVERAGE GLUCOSE 134.0 MG/DL (60-110)
== END ==
LOC: M LAB 09:21
PROVIDERS: ATTEND Physician Assistant
DX: E11.9 Type 2 diabetes mellitus without complications (principal); E78.5 Hyperlipidemia, unspecified

== ENCOUNTER → 2025-02-21 | Outpatient (CLI) | payer OTHER | LOC: M PLAIMG 16:07 | PROVIDERS: ATTEND Urology | DX: N20.0 Calculus of kidney (principal) ==

== ENCOUNTER → 2025-05-23 | Outpatient (CLI) | payer OTHER ==
[2025-05-23 16:56] LABS: ESTIMATED AVERAGE GLUCOSE 117.0 MG/DL (60-110)
== END ==
LOC: M LAB 16:22
PROVIDERS: ATTEND Physician Assistant
DX: E11.9 Type 2 diabetes mellitus without complications (principal)